=== PATIENT | male | born 1960 | race Caucasian/White ===

== ENCOUNTER 2021-02-03 05:00 | Emergency (ER) | payer OTHER ==
[2021-02-03 05:54] LABS: Hematocrit 45.8 % (39.6-49.0)
[2021-02-03 06:07] LABS: ALT/SGPT 76 U/L (12-78); AST/SGOT 35 U/L (15-37); Albumin 3.8 g/dL (3.4-5.0); Alkaline Phosphatase 94 U/L (45-117); BUN Blood Urea Nitrogen 18 mg/dL (7-18); Bicarbonate 29 mmol/L (21-32); Bilirubin Direct 0.2 mg/dL (0-0.2); Bilirubin Total 1.1 mg/dL (0.2-1.0); Glucose Level 341 mg/dL (74-106); Lipase 134 U/L (73-393); Potassium 4.1 mmol/L (3.5-5.1); Protein, Total 7.5 g/dL (6.4-8.2); Sodium Level 135 mmol/L (136-145)
[2021-02-03] MEDS ORDERED: MORPHINE 2 MG/ML SYR ONE (06:08)
[2021-02-03] MEDS ORDERED: ONDANSETRON 4 MG/2 ML VIAL ONE (06:08)
[2021-02-03 06:09] LABS: Absolute Lymphocytes (CBC) 1.1 K/uL (0.7-4.9); Basophils % 0.6 % (0-1.3); Lymphocytes % 13.5 % (15.3-44.8); MPV 7.4 fL (7.6-11.3); RBC Red Blood Cell Count 5.16 M/uL (4.33-5.43)
[2021-02-03 06:30] LABS: Protime INR 1.03
[2021-02-03 06:34] LABS: NT PRO-BNP 27 pg/mL (<125); Troponin (Emerg Dept Use Only) < 0.02 ng/mL (0.0-0.045)
[2021-02-03 06:36] LABS: Magnesium 2.2 mg/dL (1.8-2.4)
--- NOTE | 2021-02-03 07:17 | RAD REPORT ---
EXAM DESCRIPTION: RAD - Chest Single View - 02/03/2021 6:18 am CLINICAL HISTORY: CHEST PAIN COMPARISON: None TECHNIQUE: AP portable chest image was obtained 02/03/2021 6:18 am . FINDINGS: Lung volumes are low. No peripheral mass consolidation significant failure or volume overl oad findings. Heart and vasculature are normal. No measurable pleural effusion and no pneumothorax. N o acute bony abnormality seen. No acute aortic findings suspected. IMPRESSION: Limited low volume portable chest showing no acute cardiopulmonary finding.
--- NOTE | 2021-02-03 08:27 | RAD REPORT ---
EXAM DESCRIPTION: CT - Angio Aorta For Dissection - 02/03/2021 8:01 am CLINICAL HISTORY: epigastric pain, famhx of AAA COMPARISON: None. TECHNIQUE: Dynamically enhanced 3 mm thick images of the chest, abdomen, and upper pelvis were obtai katey during administration of approximately 150mL Isovue 370 IV contrast. Sagittal and coronal reconst ruction images were generated using MIP and reviewed. Exam utilizes a protocol to evaluate entire cou rse of the aorta. All CT scans are performed using dose optimization technique as appropriate and may include automated exposure control or mA/KV adjustment according to patient size. FINDINGS: Aorta is normal in diameter with no dissection or other acute aortic findings. Reconstruct ion images show no significant findings. Pulmonary arteries are normal as well. No cardiomegaly, pericardial thickening or pericardial effusio n. No mass or infiltrate in the lung parenchyma. No pleural thickening, pleural effusion or pneumothorax . No abnormal mediastinal or hilar mass or lymphadenopathy seen. No chest wall mass or abnormal axillar y lymphadenopathy. Celiac, SMA and renal arteries show no suspicious findings. Diffuse fatty infiltration of the liver s een with no focal liver lesion. There is minimal sparing near the gallbladder fossa. Spleen and pancr eas show no suspicious findings. Gallbladder wall does appear slightly thickened. Stones and sludge c an be occult on CT imaging. No pericholecystic fluid. No biliary tree dilatation. No acute bowel find ing. Moderate stool volume seen in the right-side of the colon. Diverticulosis is mild. No mass or abnormal lymphadenopathy. No free air, free fluid or inflammatory stranding. Urinary maria d dder, prostate gland and seminal vesicles show no suspicious findings. Minimal right-side inguinal he rnia seen. Small fat filled left inguinal hernia seen. IMPRESSION: Negative CT scan of the aorta. Gallbladder wall appears thickened. Stones and sludge can be occult on CT imaging. If patient's sympt oms may be referable to the gallbladder, follow-up gallbladder sonography could be performed. Additional nonacute findings detailed in the body of the report.
[2021-02-03] MEDS ORDERED: LIDOCAINE VISCOUS 2% SOLN 15 ML UDC ONE (09:00)
[2021-02-03] MEDS ORDERED: MAGNES/ALUMIN/SIMET 30ML UCUP ONE (09:00)
--- NOTE | 2021-02-03 09:10 | RAD REPORT ---
EXAM DESCRIPTION: US - Abdomen Exam Limited - 02/03/2021 8:20 am CLINICAL HISTORY: ABD PAIN COMPARISON: No comparisons FINDINGS: No gallstones, sludge or other abnormalities within the gallbladder lumen. There is no wal l thickening or pericholecystic fluid. No common duct stone or biliary tree dilatation identified. Detail was limited due to body habitus affects. IMPRESSION: No gallbladder or biliary tree abnormality identifiable.
--- NOTE | 2021-02-03 09:24 | EDPHYS ---
Physician Documentation [facility] Name: Erasmo Ding Age: 60 yrs Sex: Male : 1960 Arrival Date: 02/03/2021 Time: 05:17 Bed 13 Private MD: ED Physician Ralph Will HPI: 02/03 07:57 This 60 yrs old Male presents to ER via Ambulatory with complaints of rn Abdominal Pain. 07:57 The patient presents with abdominal pain in the epigastric area, in the periumbilical rn area. Onset: The symptoms/episode began/occurred last night. The symptoms do not radiate. Associated signs and symptoms: Pertinent negatives: blood in stools, chest pain, constipation, diarrhea, dysuria, fever, hematuria, shortness of breath, vomiting. The symptoms are described as achy, crampy. Modifying factors: The symptoms are alleviated by nothing, the symptoms are aggravated by movement, touching the area. Severity of pain: At its worst the pain was moderate in the emergency department the pain is unchanged. The patient has not experienced similar symptoms in the past. The patient has not recently seen a physician. + mid abdominal pain that began last night, no fever, no cough/sob/vomiting/diarrhea, + famhx of AAA, reports BP has been running high lately despite taking BP meds. NO trauma. . Historical: - Allergies: 05:18 No Known Allergies; em - PMHx: 05:18 Hypertensive disorder; em - PSHx: 05:18 None; em - Immunization history:: Adult Immunizations up to date. - Social history:: Smoking status: Patient denies any tobacco usage or history of. - Family history:: not pertinent. - Hospitalizations: : No recent hospitalization is reported. ROS: 07:57 Constitutional: Negative for fever, chills, and weight loss, Eyes: Negative for injury, rn pain, redness, and discharge, Neck: Negative for injury, pain, and swelling, Cardiovascular: Negative for chest pain, palpitations, and edema, Respiratory: Negative for shortness of breath, cough, wheezing, and pleuritic chest pain, Abdomen/GI: Negative for nausea, vomiting, diarrhea, and constipation, Back: Negative for injury and pain, MS/Extremity: Negative for injury and deformity, Skin: Negative for injury, rash, and discoloration, Neuro: Negative for headache, weakness, numbness, tingling, and seizure. Exam: 07:57 Constitutional: This is a well developed, well nourished patient who is awake, alert, rn and in no acute distress. Head/Face: Normocephalic, atraumatic. Eyes: Periorbital areas with no swelling, redness, or edema. Cardiovascular: Tachycardic, regular. No pulse deficits. Respiratory: No increased work of breathing, no retractions or nasal flaring. Abdomen/GI: soft, + epigastric and periumbilical tenderness, no rebound or masses Skin: Warm, dry MS/ Extremity: Pulses equal, no cyanosis. Neuro: Awake and alert, GCS 15 Vital Signs: 05:17 BP 184 / 100; Pulse 69; Resp 16; Temp 97.2(O); Pulse Ox 99% on R/A; Weight 136.08 kg; em Height 6 ft. 4 in. (193.04 cm); Pain 8/10; 06:09 BP 159 / 81; Pulse 72; Resp 30 S; Pulse Ox 95% on R/A; Pain 7/10; bb 07:00 BP 151 / 83; Pulse 110; Resp 28; Pulse Ox 92% ; bp 08:30 BP 153 / 91; Pulse 81; Resp 19; Pulse Ox 93% ; bp 10:22 BP 115 / 73; Pulse 79; Resp 16; Temp 98; Pulse Ox 99% ; bp 05:17 Body Mass Index 36.52 (136.08 kg, 193.04 cm) em MDM: 07:00 Patient medically screened. rn 09:21 Differential diagnosis: AAA, appendicitis, bowel obstruction, coronary artery disease, rn cholecystitis, Cholelithiasis, diverticulitis, gastritis, gastroesophageal reflux disease, Hepatitis, non-specific abd pain, pancreatitis, Peptic Ulcer Disease. Data reviewed: vital signs, nurses notes, lab test result(s), EKG, radiologic studies, CT scan, plain films, ultrasound, and as a result, I will discharge patient. Counseling: I had a detailed discussion with the patient and/or guardian regarding: the historical points, exam findings, and any diagnostic results supporting the discharge/admit diagnosis, lab results, radiology results, the need for outpatient follow up, to return to the emergency department if symptoms worsen or persist or if there are any questions or concerns that arise at home. 09:22 Response to treatment: the patient's symptoms have markedly improved after treatment, rn the patient's symptoms have resolved after treatment, the patient's condition has returned to base line, the patient is now symptom free, and as a result, I will discharge patient. Special discussion: Based on the patient's Hx, exam, and Dx evaluation, there is no indication for emergent surgery or inpatient Tx. It is understood by the patient/guardian that if the Sx's persist or worsen they need to return immediately for re-evaluation. I have referred the patient to see his PCP for further evaluation of high blood pressure. I discussed with the patient/guardian in detail that at this point there is no indication for admission to the hospital. It is understood, however, that if the symptoms persist or worsen the patient needs to return immediately for re-evaluation. Based on the history and exam findings, there is no indication for further emergent testing or inpatient evaluation. I discussed with the patient/guardian the need to see the hydroelectric plant technician for further evaluation of the symptoms. I discussed with the patient/guardian the need to see the primary care provider for further evaluation of the symptoms. ED course: No acute findings on CT aorta, ultrasound, cxr, bloodwork, ecg and trop neg and never complained of chest pain. Recommended weight loss and diet modification for hernias/acid reflux/fatty liver, along with PCP and GI f/u. Has appt this week with pcp for BP management. Pain free, and feels good now.. 02/03 05:25 Order name: Basic Metabolic Panel; Complete Time: 07:02/03 05:25 Order name: CBC with Diff; Complete Time: 07:02/03 05:25 Order name: Hepatic Function; Complete Time: 07:02/03 05:25 Order name: Lipase; Complete Time: 07:02/03 06:07 Order name: PT-INR; Complete Time: :02/03 06:07 Order name: XRAY Chest (1 view); Complete Time: 07:02/03 06:07 Order name: DD; Complete Time: 07:02/03 06:11 Order name: Troponin (Emerg Dept Use Only); Complete Time: 07: EDMS 02/03 06:11 Order name: NT PRO-BNP; Complete Time: 07:22 EDMS 02/03 06:11 Order name: Magnesium; Complete Time: 07:22 EDMS 02/03 07:29 Order name: CT Aorta for Dissection; Complete Time: 09:10 rn 02/03 05:25 Order name: IV Saline Lock; Complete Time: 06:07 02/03 05:25 Order name: Labs collected and sent; Complete Time: 06:07 bb 02/03 06:07 Order name: EKG; Complete Time: 06:07 02/03 06:07 Order name: Cardiac monitoring; Complete Time: 06:07 bb 02/03 06:07 Order name: EKG - Nurse/Tech; Complete Time: 06:07 bb 02/03 06:07 Order name: O2 Per Protocol; Complete Time: 06:07 02/03 06:07 Order name: O2 Sat Monitoring; Complete Time: 06:07 02/03 07:29 Order name: US Abdomen Limited; Complete Time: 09:10 rn Administered Medications: 05:45 Drug: morphine 4 mg {Note: RASS 0.} Route: IVP; Site: right antecubital; bb 08:52 Follow up: Response: Adverse reaction, Physician notified; Pain is decreased bp 05:45 Drug: Zofran (Ondansetron) 4 mg Route: IVP; Site: right antecubital; bb 09:43 Follow up: Response: No adverse reaction bp 08:30 Drug: GI Cocktail without - (Maalox Suspension 30 ml, Lidocaine Liquid 2 % 15 bp ml) Route: PO; 09:42 Follow up: Response: No adverse reaction; Pain is decreased bp 09:40 Drug: ProTONIX (pantoprazole) 40 mg Route: IVP; Site: right forearm; bp 10:21 Follow up: Response: No adverse reaction bp Disposition Summary: 02/03/21 09:24 Discharge Ordered Location: Home rn Problem: new rn Symptoms: have improved rn Condition: Stable rn Diagnosis - Abdominal pain, unspecified rn - Acute gastritis rn Followup: rn - With: Phuc Stanton MD - When: As needed - Reason: Recheck today's complaints, Re-evaluation by your physician Discharge Instructions: - Discharge Summary Sheet rn - Abdominal Pain, Adult rn - Gastritis, Adult rn - Hypertension, Adult rn - Pain Without a Known Cause rn - Fatty Liver Disease rn Forms: - Medication Reconciliation Form rn - Thank You Letter rn - Antibiotic chief learning officer - Prescription Opioid Use rn Prescriptions: - Protonix 40 mg Oral Tablet - take 1 tablet by ORAL route once daily; 30 tablet; Refills: 0, Product rn Selection Permitted Signatures: Dispatcher [employer] EDMS Vito Osorio RN RN em Ballard, Brenda, RN RN bb Nieto, Roman, MD MD rn Peltier, Brian, ADRI RN bp Corrections: (The following items were deleted from the chart) 06: 06:07 MAGNESIUM+C.LAB.BRZ ordered. EDMS EDMS 06:09 06:07 PROBNP+C.LAB.BRZ ordered. EDMS EDMS 06:09 06:07 TROPONIN (EMERG DEPT USE ONLY)+C.LAB.BRZ ordered. EDMS EDMS
--- NOTE | 2021-02-03 09:24 | ER ---
Nurse's Notes [facility] Name: Erasmo Ding Age: 60 yrs Sex: Male : 1960 Arrival Date: 02/03/2021 Time: 05:17 Bed 13 Private MD: Diagnosis: Abdominal pain, unspecified;Acute gastritis Presentation: 02/03 05:17 Chief complaint: Patient states: epigastric pain that started at 0130 this morning, em denies N/V or fever. Coronavirus screen: Client denies travel out of the [place] in the last 14 days. Ebola Screen: Patient negative for fever greater than or equal to 101.5 degrees Fahrenheit, and additional compatible Ebola Virus Disease symptoms Patient denies exposure to infectious person. Patient denies travel to an Ebola-affected area in the 21 days before illness onset. No symptoms or risks identified at this time. Initial Sepsis Screen: Does the patient meet any 2 criteria? No. Patient's initial sepsis screen is negative. Does the patient have a suspected source of infection? No. Patient's initial sepsis screen is negative. Risk Assessment: Do you want to hurt yourself or someone else? Patient reports no desire to harm self or others. Onset of symptoms was February 03, 2021. 05:17 Method Of Arrival: Ambulatory em 05:17 Acuity: REYES 3 em Historical: - Allergies: 05:18 No Known Allergies; em - PMHx: 05:18 Hypertensive disorder; em - PSHx: 05:18 None; em - Immunization history:: Adult Immunizations up to date. - Social history:: Smoking status: Patient denies any tobacco usage or history of. - Family history:: not pertinent. - Hospitalizations: : No recent hospitalization is reported. Screenin:30 Abuse screen: Denies threats or abuse. Nutritional screening: No deficits noted. bb Tuberculosis screening: No symptoms or risk factors identified. Fall Risk None identified. Assessment: 05:30 General: Appears in no apparent distress. uncomfortable, Behavior is cooperative, bb anxious. Pain: Complains of pain in epigastric area Pain currently is 7 out of 10 on a pain scale. Neuro: Level of Consciousness is awake, alert, obeys commands, Oriented to person, place, time, situation. Cardiovascular: Heart tones S1 S2 present Capillary refill < 3 seconds Patient's skin is warm and dry. Respiratory: Airway is patent Respiratory effort is shallow, Respiratory pattern is tachypnea Breath sounds are clear bilaterally. GI: Abdomen is round Bowel sounds present X 4 quads. Abd is soft and non tender X 4 quads. Reports upper abdominal pain. Derm: Skin is pink, warm \T\ dry. Musculoskeletal: Circulation, motion, and sensation intact. 07:00 Reassessment: RECD REPORT FROM MARJORIE RUSH. ALL PROTOCOL ORDERS COMPLETED, LMP RE-EVAL bp PENDING. 08:29 Reassessment: PT RETURNED FROM CT AND U/S. RESULTS PENDING. bp 10:23 Reassessment: PT D/C HOME AMBULATORY, DX WITH ACUTE GASTRITIS. bp Vital Signs: 05:17 BP 184 / 100; Pulse 69; Resp 16; Temp 97.2(O); Pulse Ox 99% on R/A; Weight 136.08 kg; em Height 6 ft. 4 in. (193.04 cm); Pain 8/10; 06:09 BP 159 / 81; Pulse 72; Resp 30 S; Pulse Ox 95% on R/A; Pain 7/10; bb 07:00 BP 151 / 83; Pulse 110; Resp 28; Pulse Ox 92% ; bp 08:30 BP 153 / 91; Pulse 81; Resp 19; Pulse Ox 93% ; bp 10:22 BP 115 / 73; Pulse 79; Resp 16; Temp 98; Pulse Ox 99% ; bp 05:17 Body Mass Index 36.52 (136.08 kg, 193.04 cm) em ED Course: 05:17 Patient arrived in ED. em 05:18 Triage completed. em 05:18 Arm band placed on. em 05:30 Patient has correct armband on for positive identification. Placed in gown. Bed in low bb position. Call light in reach. Side rails up X 1. Adult w/ patient. business performance specialist on. Pulse ox on. NIBP on. 05:30 Initial lab(s) drawn, by me, sent to lab. Inserted saline lock: 18 gauge in right bb antecubital area, using aseptic technique. Blood collected. 06:18 XRAY Chest (1 view) In Process Unspecified. EDMS 07:00 Ralph Will MD is Attending Physician. rn 07:16 Ishmael Painter, ADRI is Primary Nurse. bp 08:01 CT Aorta for Dissection In Process Unspecified. EDMS 08:20 US Abdomen Limited In Process Unspecified. EDMS 09:23 Phuc Stanton MD is Referral Physician. rn 10:23 No provider procedures requiring assistance completed. IV discontinued, intact, bp bleeding controlled, No redness/swelling at site. Pressure dressing applied. Administered Medications: 05:45 Drug: morphine 4 mg {Note: RASS 0.} Route: IVP; Site: right antecubital; bb 08:52 Follow up: Response: Adverse reaction, Physician notified; Pain is decreased bp 05:45 Drug: Zofran (Ondansetron) 4 mg Route: IVP; Site: right antecubital; bb 09:43 Follow up: Response: No adverse reaction bp 08:30 Drug: GI Cocktail without - (Maalox Suspension 30 ml, Lidocaine Liquid 2 % 15 bp ml) Route: PO; 09:42 Follow up: Response: No adverse reaction; Pain is decreased bp 09:40 Drug: ProTONIX (pantoprazole) 40 mg Route: IVP; Site: right forearm; bp 10:21 Follow up: Response: No adverse reaction bp Outcome: 09:24 Discharge ordered by MD. rn 10:23 Discharged to home ambulatory, with family. bp 10:23 Condition: stable 10:23 Discharge instructions given to patient, Instructed on discharge instructions, follow up and referral plans. medication usage, Demonstrated understanding of instructions, follow-up care, medications, Prescriptions given X 1. 10:25 Patient left the ED. bp Signatures: Dispatcher [employer] EDNH Vito Osorio RN RN em Ballard, Brenda, RN RN bb Nieto, Roman, MD MD rn Peltier, Brian, RN RN bp Corrections: (The following items were deleted from the chart) 05:19 05:17 BP 184 / 100; Pulse 69bpm; Resp 16bpm; Pulse Ox 99% RA; Temp 97.2F Oral; 136.08 em kg; Height 6 ft. 4 in.; BMI: 36.5; em
[2021-02-03] MEDS ORDERED: PANTOPRAZOLE 40 MG INJ ONE (10:30)
[2021-02-03 10:37] VITALS: BP 115/73; TEMP 98; O2SAT 99
--- NOTE | 2021-02-04 16:38 | EKG ---
Test Date: 2021-02-03 Test Time: 06:04:06 Core Fitter: KAYLEE MEASUREMENT RESULTS: Intervals: Rate: 77 MO: 152 QRSD: 88 QT: 376 QTc: 425 [place]: P: 51 MO: 152 QRS: -7 T: -6 INTERPRETIVE STATEMENTS: Normal sinus rhythm Normal ECG No previous ECG available for comparison Electronically Signed On 02-04-21 16:33:23 CDT by Michael Johnston
== END 2021-02-03 10:25 | disposition home or self-care (01) ==
LOC: ER 05:00
DX: K29.00 Acute gastritis without bleeding (principal)
CPT/HCPCS: 93005; 85025; 80048; 36415; 83735; 85610; 85379; 80076; 84484; 83690; 83880; 71275; 74175; 71045; 76705; Q9967; C9113; J2270; J2405; 99284

== ENCOUNTER 2021-03-12 16:41 | Inpatient (IN) | payer OTHER ==
--- OUTSIDE RECORDS SUMMARY | 2021-03-12 16:44 | XMS REPORT | Continuity of Care Document ---
:1960 Author Organization [facility] t Address [address] [place] [address] Care Team Providers Name Role Phone Magdalena Coyle Primary Care Physician [phone] Magdalena Ponce Attending Clinician [phone] Braulio Ho MD Attending Clinician Thomas Kirkland MA Attending Clinician Unavailable Payers Payer Name Policy Type Policy Effective Date Expiration Date Sour ce Number CIGNACIGNA OPEN [id number] 2012 [facility] ACCESS/NETWORKxx [facility]:00[facility] [id number] 3-PresentHMO Problems Condition Condition Condition Status Onset Resolution Last Treating Co mments Source Name Details Category Date Date Treatment Clinician Date Pure Pure Disease Active Methodi hypertrigl hypertrigl 03-05 yceridemia yceridemia 00:00: Ho spita 00 l Diabetes Diabetes Disease Active Metho di mellitus mellitus 03-05 without without 00:00: Hospita complicati complicati 00 l on on Essential Essential Disease Active Met hodi hypertensi hypertensi 03-05 on on 00:00: Hospita 00 l BMI BMI Disease Active Methodi 40.0-44.9, 40.0-44.9, 03-05 adult adult 00:00: Hospita 00 l Allergies, Adverse Reactions, Alerts This patient has no known allergies or adverse reactions. Family History Family Member Diagnosis Comments Start Date Stop Date Source Natural mother Heart attack [facility] Natural father Stroke [facility] Social History Social Habit Start Date Stop Date Quantity Comments Source History SDOH [facility] History SDOH [facility] Exposure to Not sure [facility] SARS-CoV-2 (event) Hospit al Alcohol intake 2021-03-05 2021-03-05 Lifetime [facility] 00:00:00 00:00:00 non-drinker Hospital (finding) History SDOH 2021-03-03 2021-03-03 1 [facility] Alcohol Frequency 00:00:00 00:00:00 Hospita l Sex Assigned At [birth year] [facility] 00[facility]00 [facility] Smoking Status Start Date Stop Date Source Never smoker [facility] Medications Ordered Filled Start Stop Current Ordering Indication Dosage Frequency Signature Comments Components Source Medication Medication Date Date Medication? Clinician (SIG) Name Name amLODIPine 2021- Yes 5mg QD Take 1 Meth jay (NORVASC) 5 03-03 07-28 tablet (5 st mg tablet 00:00: 04:59 mg total) Ho spita 00 :00 by mouth l daily. pantoprazol Yes TAKE 1 Meth jay e 6-[address] (PROTONIX) 00:00: ORAL ROUTE H ospita 40 MG EC 00 1 TIME l tablet DAILY fluticasone Yes USE 1 Metho di propionate 6-[address] (FLONASE) 00:00: EACH Hospita 50 00 NOSTRIL l mcg/actuati TWICE A on nasal DAY FOR 14 spray DAYS losartan-hy Yes 1{tbl} QD Take 1 Me thodi drochloroth 5-[address] iazide 00:00: mouth Hospita (HYZAAR) 00 every l 100-25 mg morning. per tablet metoprolol Yes 50mg QD Take 50 mg M ethodi succinate 5-[address] XL 00:00: every Hospita (TOPROL-XL) 00 morning. l 50 mg 24 hr tablet Vital Signs Vital Name Observation Time Observation Value Comments Source Systolic blood 2021-03-03 15:34:00 136 mm[Hg] [facility] pressure Diastolic blood 2021-03-03 15:34:00 89 mm[Hg] [facility] pressure Heart rate 2021-03-03 15:34:00 87 /min [facility] Body height 2021-03-03 15:34:[address] [facility] Body weight 2021-03-03 15:34:[address] [facility] BMI 2021-03-03 15:34:00 40.05 kg/m2 [facility] Oxygen saturation in 2021-03-03 15:34:00 98 /min [facility] Arterial blood by Pulse oximetry Procedures Procedure Date / Time Performed Performing Clinician [facility] e LIPID PANEL 2021-03-03 17:02:[address] [facility] HEMOGLOBIN A1C 2021-03-03 17:02:[address] [facility] Plan of Care Planned Activity Planned Date Details Comments Source Future Scheduled Test DIABETES: RETINAL EYE [facility] EXAM [code = DIABETES: RETINAL EYE EXAM] Future Scheduled Test DIABETIC FOOT EXAM [facility] [code = DIABETIC FOOT EXAM] Future Scheduled Test URINE MICROALBUMIN [facility] [code = URINE MICROALBUMIN] Future Scheduled Test COVID-19 VACCINE (1) [facility] [code = COVID-19 VACCINE (1)] Future Scheduled Test Hepatitis C screening [facility] (procedure) [code = 293799029] Future Scheduled Test COLONOSCOPY SCREENING [facility] [code = COLONOSCOPY SCREENING] Future Scheduled Test SHINGLES VACCINES (#1) [facility] [code = SHINGLES VACCINES (#1)] Future Scheduled Test INFLUENZA VACCINE [code [facility] = INFLUENZA VACCINE] Encounters Start End Encounter Admission Attending Care Care Encounter Source Date/Time Date/Time Type Type Clinicians Facility Department ID 2021-03-06 2021-03-06 Outpatient [facility] 6ee [id number] 00:00:00 00:00:00 , Luisa [id number] Magdalena [id number] 2021-03-05 2021-03-05 Lab [facility], 1.2.840.1 [id number] Methodi 07:24:24 07:29:24 Alejandro Ramsey 13691.1.1 660 s t 3.430.2.7 Hospit a .3.695798 l .8 2021-03-03 2021-03-03 Office [facility], 1.2.840.1 [id number] Methodi 09:53:44 11:25:53 Visit Alejandro Ramsey 55425.1.1 881 s t 3.430.2.7 Hospit a .3.992380 l .8 2021-03-03 2021-03-03 Outpatient [facility] [id number] [address] 00:00:00 00:00:00 ALEJANDRO Apple[address] [facility] 2021-03-03 2021-03-03 Outpatient [facility] [id number] [address] 00:00:00 00:00:00 ALEJANDRO [address] 2021-03-03 2021-03-03 Travel 1.2.840.1 [id number] Methodi 00:00:00 00:00:[address] 3.430.2.7 0.2.7.3.698 Ho spita .3.522386 084.8 l .8 2021-02-18 2021-02-18 Travel 1.2.840.1 1.2.413.612 [id number] [facility]i 00:00:00 00:00:[address] 3.430.2.7 0.2.7.3.698 Ho spita .3.841158 084.8 l .8 2021-02-18 2021-02-18 Telephone Isael, 1.2.840.1 [id number] Methodi 00:00:00 00:00:00 Edrana L [address] 3.430.2.7 Hospit a .3.715401 l .8 2021-02-05 2021-02-05 Outpatient [facility] [id number] 00:00:00 00:00:00 , Luisa [id number] Magdalena [id number] 2021-02-05 2021-02-05 Outpatient [facility] [id number] 00:00:00 00:00:00 , Luisa [id number] Magdalena [id number] 2021-02-02 2021-02-02 Travel 1.2.840.1 1.2.572.024 [id number] Methodi 00:00:00 00:00:[address] 3.430.2.7 0.2.7.3.698 Ho spita .3.862856 084.8 l .8 2021-02-02 2021-02-02 Telephone [facility], 1.2.840.1 [id number] Methodi 00:00:00 00:00:00 Alejandro AJessica 52403.1.1 427 s t 3.430.2.7 Hospit a .3.536956 l .8 2021-01-21 2021-01-21 Outpatient [facility] 24d [id number] 00:00:00 00:00:00 , Luisa [id number] Magdalena [id number] Results This patient has no known results.
[2021-03-12 20:58] LABS: Absolute Lymphocytes (CBC) 1.2 K/uL (0.7-4.9); Basophils % 0.5 % (0-1.3); Hematocrit 47.5 % (39.6-49.0); Lymphocytes % 11.6 % (15.3-44.8); MPV 7.3 fL (7.6-11.3); RBC Red Blood Cell Count 5.28 M/uL (4.33-5.43)
[2021-03-12] MEDS ORDERED: METHYLPREDNISOLONE 125 MG INJ ONE (21:06)
[2021-03-12 21:11] LABS: Protime INR 1.4
[2021-03-12 21:21] LABS: Blood Morphology Comment NOT SEEN (NOT SEEN); Platelet Estimate INCR; White Blood Cell Scan OK (OK)
[2021-03-12 21:51] LABS: ALT/SGPT 62 U/L (12-78); AST/SGOT 44 U/L (15-37); Albumin 3.2 g/dL (3.4-5.0); Alkaline Phosphatase 66 U/L (45-117); BUN Blood Urea Nitrogen 21 mg/dL (7-18); Bicarbonate 27 mmol/L (21-32); Bilirubin Direct 0.3 mg/dL (0-0.2); Bilirubin Total 1.2 mg/dL (0.2-1.0); Ferritin 959.6 ng/mL (26-388); Glucose Level 266 mg/dL (74-106); Magnesium 2.4 mg/dL (1.8-2.4); NT PRO-BNP 93 pg/mL (<125); Potassium 3.3 mmol/L (3.5-5.1); Sodium Level 134 mmol/L (136-145); Troponin (Emerg Dept Use Only) < 0.02 ng/mL (0.0-0.045)
--- NOTE | 2021-03-12 22:44 | P.HP ---
Certification for Inpatient Patient admitted to: Inpatient With expected LOS: >2 Midnights Patient will require the following post-hospital care: None Practitioner: I am a practitioner with admitting privileges, knowledge of patient current condition, hospital course, and medical plan of care. Services: Services provided to patient in accordance with Admission requirements found in Title 42 Section 412.3 of the Code of Federal Regulations Patient History Date of Service: 03/12/21 Primary Care Provider: Luisa Clark Reason for admission: COVID-19 pneumonia History of Present Illness: 60-year-old male with history of hypertension presents emergency department for shortness of breath. Patient reports testing positive for Covid on 03/05/2021. Patient was vaccinated with 1 dose of moderna vaccine on 03/04/2021. Patient noted increasing shortness of breath, hypoxia on room air at home. Patient was evaluated in the emergency department, labs were significant for sodium 134 potassium 3.3 chloride 96 GFR 57 glucose 266 ferritin 959 CRP 177 chest x-ray shows COVID-19 pneumonia pattern, patient requiring nasal cannula at 4 to 6 L to maintain saturations greater than 90% ED provider wishes to admit for further evaluation and management. - Past Medical/Surgical History -: Hypertension -: None Psychosocial/ Personal History: Lives with family, works in the [employer] - Family History Father -: Heart disease - Social History Smoking Status: Never smoker Alcohol use: No CD- Drugs: No Caffeine use: Yes Place of Residence: Home Review of Systems 10-point ROS is otherwise unremarkable General: Fever, Chills, Weakness, Malaise Respiratory: Cough, Dry, Shortness of Breath Physical Examination - Physical Exam General: Alert, In no apparent distress, Oriented x3 HEENT: Atraumatic, PERRLA, Mucous membr. moist/pink, EOMI, Sclerae nonicteric Neck: Supple, 2+ carotid pulse no bruit, No LAD, Without JVD or thyroid abnormality Respiratory: Diminished, Other (Tachypnea, dyspnea) Cardiovascular: Regular rate/rhythm, Normal S1 S2 Gastrointestinal: Normal bowel sounds, No tenderness Musculoskeletal: No tenderness Integumentary: No rashes Neurological: Normal gait, Normal speech, Normal strength at 5/5 x4 extr, Normal tone, Normal affect Lymphatics: No axilla or inguinal lymphadenopathy - Studies Laboratory Data (last 24 hrs) 08/05/21 20:50: PT 16.2 H, INR 1.40 03/12/21 20:50: WBC 10.60, Hgb 16.3, Hct 47.5, Plt Count 481 H 03/12/21 20:50: Sodium 134 L, Potassium 3.3 L, BUN 21 H, Creatinine 1.30, Glucose 266 H, Magnesium 2.4, Total Bilirubin 1.2 H, AST 44 H, ALT 62, Alkaline Phosphatase 66 Assessment and Plan - Plan Assessment: Acute hypoxic respiratory failure secondary to COVID-19 pneumonia Hypertension Plan: Acute hypoxic respiratory failure secondary to COVID-19 pneumonia: Continue with IV steroids, oral supplements, ivermectin, daily room air saturations, supplemental oxygen as needed, respiratory therapy consult, pulmonology consult. Appreciate further input from pulmonology. Hypertension: Continue home medications adjust as necessary. DVT PPX: Lovenox Code status: Full Discharge Plan: Home Plan to discharge in: Greater than 2 days - Advance Directives Does patient have a Living Will: No Does patient have a Durable POA for Healthcare: No - Code Status/Comfort Care Code Status Assessed: Yes (Full code) Critical Care: No Time Spent Managing Pts Care (In Minutes): 55
[2021-03-12] MEDS ORDERED: NA CHLORIDE 0.9% 1,000 ML ONE (23:05)
--- NOTE | 2021-03-12 23:10 | EDPHYS ---
Physician Documentation [facility] Name: Erasmo Ding Age: 60 yrs Sex: Male : 1960 Arrival Date: 03/12/2021 Time: 16:44 Bed 23 Private MD: ED Physician Dakotah Brown HPI: 03/12 20:45 This 60 yrs old Male presents to ER via Ambulatory with complaints of Covid+, cp Breathing Difficulty. 20:45 The patient has shortness of breath at rest. Onset: The symptoms/episode began/occurred cp last week, and became worse today. 20:45 Duration: The symptoms are continuous, and are steadily getting worse. Associated signs cp and symptoms: Pertinent positives: non-productive cough, Pertinent negatives: chest pain, diaphoresis, dizziness, fever, vomiting. Severity of symptoms: in the emergency department the symptoms are unchanged despite home interventions. Patient reports testing positive for COVID-19 on 03-07-2021. Historical: - Allergies: 17:22 No Known Allergies; ca1 - PMHx: 17:22 Hypertensive disorder; ca1 - Immunization history:: Client reports receiving the 1st dose of the Covid vaccine, March 04, 2021. - Social history:: Smoking status: Patient denies any tobacco usage or history of. ROS: 20:50 Constitutional: Negative for body aches, chills, fever, poor PO intake. cp 20:50 Eyes: Negative for injury, pain, redness, and discharge. cp 20:50 ENT: Negative for drainage from ear(s), ear pain, sore throat, difficulty swallowing, difficulty handling secretions. 20:50 Neck: Negative for pain with movement, pain at rest, stiffness. 20:50 Cardiovascular: Negative for chest pain, edema, palpitations. 20:50 Respiratory: Positive for cough, "sounds productive", shortness of breath, at rest. Negative for wheezing. 20:50 Abdomen/GI: Negative for abdominal pain, vomiting, diarrhea, constipation. 20:50 Neuro: Negative for altered mental status, weakness. 20:50 All other systems are negative. Exam: 20:55 Constitutional: The patient appears in no acute distress, alert, awake, cp non-diaphoretic, non-toxic, well developed, well nourished, obese. 20:55 Head/Face: Normocephalic, atraumatic. cp 20:55 Eyes: Periorbital structures: appear normal, Conjunctiva: normal, no exudate, no injection, Sclera: no appreciated abnormality, Lids and lashes: appear normal, bilaterally. 20:55 ENT: External ear(s): are unremarkable, Nose: is normal, Mouth: Lips: moist, Oral mucosa: moist, Posterior pharynx: Airway: no evidence of obstruction, patent. 20:55 Neck: ROM/movement: is normal, is supple, no meningismus, no nuchal rigidity. 20:55 Chest/axilla: Inspection: normal, Palpation: is normal, no crepitus, no tenderness. 20:55 Cardiovascular: Rate: normal, Rhythm: regular, Edema: is not appreciated, JVD: is not appreciated. 20:55 Respiratory: the patient does not display signs of respiratory distress, Respirations: labored breathing, that is mild, intercostal retractions, are absent, shallow respirations, that is mild, Breath sounds: bronchial sounds, that are mild, are heard diffusely, decreased breath sounds, that are mild, diffuse, stridor, is not appreciated, wheezing: is not appreciated. 20:55 Abdomen/GI: Inspection: abdomen appears normal, Palpation: abdomen is soft and non-tender, in all quadrants. 20:55 Back: pain, is absent, ROM is normal. 20:55 Skin: no rash present. 20:55 Neuro: Orientation: to person, place \\T\\ time. Mentation: is normal, Motor: moves all fours, strength is normal, Gait: is steady. 21:15 ECG was reviewed by the Attending Physician. cp Vital Signs: 17:18 BP 166 / 81; Pulse 89; Resp 24; Temp 97.6(TE); Pulse Ox 90% on 4 lpm NC; Weight 149.23 ca1 kg (R); Height 6 ft. 4 in. (193.04 cm) (R); Pain 0/10; 23:16 BP 151 / 85; Pulse 106; Resp 40 S; Temp 99.1(O); Pulse Ox 90% on 15 lpm NC; iw 17:18 Body Mass Index 40.05 (149.23 kg, 193.04 cm) ca1 MDM: 20:32 Patient medically screened. cp 21:00 Differential diagnosis: CHF exacerbation, Chronic Obstructive Pulmonary Disease cp pneumonia, pulmonary edema, Pulmonary Embolism Sepsis Unstable Angina. 23:25 Data reviewed: vital signs, nurses notes, lab test result(s), EKG, radiologic studies, cp CT scan, plain films, and as a result, I will admit patient. 23:25 Counseling: I had a detailed discussion with the patient and/or guardian regarding: the cp historical points, exam findings, and any diagnostic results supporting the discharge/admit diagnosis, lab results, radiology results, the need for further work-up and treatment in the hospital. Physician consultation: Joaquín BAJWA was contacted at 23:00, regarding admission, to the telemetry unit. patient's condition. 03/12 20:40 Order name: Basic Metabolic Panel cp 03/12 20:40 Order name: CBC with Diff; Complete Time: 21:41 cp 03/12 22:38 Interpretation: Normal except: PLT 481; MPV 7.3; DYAN% 82.9; LYM% 11.6; NEUT A 8.8. cp 03/12 20:40 Order name: LFT's; Complete Time: 22:37 cp 03/12 22:37 Interpretation: Normal except: AST 44; BILIT 1.2; BILID 0.3; TP 9.0; ALB 3.2; GLOB 5.8; cp A/G 0.6. 03/12 20:40 Order name: Magnesium; Complete Time: 22:37 cp 03/12 20:40 Order name: NT PRO-BNP; Complete Time: 22:37 cp 03/12 20:40 Order name: PT-INR; Complete Time: 21:41 cp 03/12 20:40 Order name: Troponin (emerg Dept Use Only); Complete Time: 22:37 cp 03/12 20:40 Order name: CRP; Complete Time: 22:37 cp 03/12 22:37 Interpretation: Abnormal: C-REACTIVE PROT 177.00. cp 03/12 20:40 Order name: Ferritin; Complete Time: 22:37 cp 03/12 20:41 Order name: Basic Metabolic Panel; Complete Time: 22:37 EDMS 03/12 21:21 Order name: CBC Smear Scan; Complete Time: 21:41 EDMS 03/13 05:35 Order name: D-Dimer EDMS 03/13 05:38 Order name: CBC with Automated Diff EDMS 03/13 05:56 Order name: Comprehensive Metabolic Panel EDMS 08/ 05:56 Order name: Lipid Profile EDMS 03/13 05:56 Order name: C-Reactive Protein EDMS / 05:56 Order name: T4 Free EDMS / 05:56 Order name: Magnesium EDMS 03/13 05:56 Order name: Thyroid Stimulating Hormone EDMS 03/13 05:56 Order name: Ferritin EDMS / 06:48 Order name: Hemoglobin A1c EDMS / 07:29 Order name: Manual Differential EDMS / 07:41 Order name: Glucose, Ancillary Testing EDMS 08/ 11:54 Order name: Glucose, Ancillary Testing EDMS 08/ 16:43 Order name: Glucose, Ancillary Testing EDMS / 21:04 Order name: Glucose, Ancillary Testing EDMS 03/14 03:17 Order name: Urine Dipstick-Ancillary EDMS / 03:52 Order name: Urinalysis EDMS 03/14 04:21 Order name: Urine Microscopic Only EDMS 03/14 06:10 Order name: CBC with Automated Diff EDMS 03/12 20:40 Order name: XRAY Chest (1 view) cp / 22:39 Order name: CT Chest For PE Angio cp 03/13 12:13 Order name: CT EDMS / 06:16 Order name: D-Dimer EDMS / 06:33 Order name: Comprehensive Metabolic Panel EDMS 03/14 06:33 Order name: C-Reactive Protein EDMS 08/ 06:33 Order name: Magnesium EDMS 03/14 06:33 Order name: Ferritin EDMS 03/14 08:13 Order name: Glucose, Ancillary Testing EDMS 08/ 11:52 Order name: Glucose, Ancillary Testing EDMS / 13:08 Order name: Glucose, Ancillary Testing EDMS 08/ 16:58 Order name: Glucose, Ancillary Testing EDMS 08/ 21:51 Order name: Glucose, Ancillary Testing EDMS 08/ 07:10 Order name: Comprehensive Metabolic Panel EDMS / 07:10 Order name: C-Reactive Protein EDMS 08 07:10 Order name: Magnesium EDMS 08 07:10 Order name: Ferritin EDMS 03/15 07:17 Order name: D-Dimer EDMS 03/15 07:41 Order name: CBC with Automated Diff EDMS 03/15 07:44 Order name: Glucose, Ancillary Testing EDMS 03/15 08:08 Order name: Urine Culture EDMS 03/15 11:30 Order name: Glucose, Ancillary Testing EDMS 03/15 17:40 Order name: Glucose, Ancillary Testing EDMS 03/15 20:14 Order name: Glucose, Ancillary Testing EDMS 03/16 06:26 Order name: CBC with Automated Diff EDMS 03/16 06:28 Order name: D-Dimer EDMS 03/16 08:01 Order name: Glucose, Ancillary Testing EDMS 03/16 10:46 Order name: Comprehensive Metabolic Panel EDMS 03/16 10:46 Order name: C-Reactive Protein EDMS 03/16 10:46 Order name: Magnesium EDMS 03/16 11:01 Order name: Ferritin EDMS 03/16 11:31 Order name: Glucose, Ancillary Testing EDMS 03/12 20:40 Order name: EKG; Complete Time: 20:41 cp 03/12 20:40 Order name: Cardiac monitoring; Complete Time: 10:25 cp 03/12 20:40 Order name: EKG - Nurse/Tech; Complete Time: 21:18 cp 03/12 20:40 Order name: IV Saline Lock; Complete Time: 23:15 cp 03/12 20:40 Order name: Labs collected and sent; Complete Time: 20:59 cp 03/12 20:40 Order name: O2 Per Protocol; Complete Time: 21:00 cp 03/12 20:40 Order name: O2 Sat Monitoring; Complete Time: 21:00 cp 03/15 07:56 Order name: RAD EDMS EC:15 Rate is 111 beats/min. Rhythm is regular. MA interval is normal. QRS interval is cp normal. QT interval is normal. Interpreted by me. Reviewed by me. Administered Medications: 21:31 Drug: SOLU-Medrol (methylPrednisoLONE) 125 mg Route: IVP; Site: right antecubital; bb 23:14 Drug: NS 0.9% 500 ml Route: IV; Rate: bolus; Site: right antecubital; iw 23:15 Drug: NS 0.9% 500 ml Route: IV; Rate: 125 ml/hr; Site: right antecubital; iw Disposition Summary: 03/12/21 23:10 Hospitalization Ordered Hospitalization Status: Inpatient Admission cp Provider: Will, Jose Luis cp Condition: Stable cp Problem: new cp Symptoms: have improved cp Bed/Room Type: Standard cp Location: Telemetry/MedSurg (Inpatient)(03/16/21 07:18) [email or web address] Room Assignment: 431(03/16/21 07:18) jaLeon Diagnosis - Other viral pneumonia cp - SARS-associated coronavirus as the cause of diseases classified elsewhere cp - Hypoxemia cp Forms: - Medication Reconciliation Form cp - SBAR form cp Addendum: 03/20/2021 19:17 Co-signature as Attending Physician, Dakotah Brown MD. [facility] Signatures: Dispatcher [employer] EDMS Shobha Otto RN RN Kathya Mcknight RN ADRI iw Joaquín Rome, SOLE FILLER-C SOLE FILLER-Cla1 Keith Membreno PA PA cp Nevin Richardson, RN ADRI Bob Parnell RN RN ja Sumi Rudolph RN ADRI [facility] Dakotah Brown MD MD [email or web address] Corrections: (The following items were deleted from the chart) 03/12 23:35 23:10 Telemetry/MedSurg (Inpatient) cp cg 23:35 23:10 cp cg 03/16 07:18 03/12 23:35 [facility] ER HOLD cg ja1 03/16 07:18 03/12 23:35 ERHOLD- cg ja1
--- NOTE | 2021-03-12 23:10 | ER ---
Nurse's Notes [facility] Name: Erasmo Ding Age: 60 yrs Sex: Male : 1960 Arrival Date: 03/12/2021 Time: 16:44 Bed 23 Private MD: Diagnosis: Other viral pneumonia;SARS-associated coronavirus as the cause of diseases classified elsewhere;Hypoxemia Presentation: 03/12 17:18 Chief complaint: Patient states: Covid+ 03/06/2021. SOB got worse today. SPO2 at in ca1 triage was 82%. Placed on O2 via NC at 4LPM, SPO2 at 88%. Coronavirus screen: Client reports previous positive COVID test result. Date of collection: March 06, 2021 Staff notified of need for isolation. Ebola Screen: Patient negative for fever greater than or equal to 101.5 degrees Fahrenheit, and additional compatible Ebola Virus Disease symptoms Patient denies exposure to infectious person. Patient denies travel to an Ebola-affected area in the 21 days before illness onset. No symptoms or risks identified at this time. Initial Sepsis Screen: Does the patient meet any 2 criteria? No. Patient's initial sepsis screen is negative. Does the patient have a suspected source of infection? No. Patient's initial sepsis screen is negative. Risk Assessment: Do you want to hurt yourself or someone else? Patient reports no desire to harm self or others. Onset of symptoms was March 07, 2021. 17:18 Method Of Arrival: Ambulatory ca1 17:18 Acuity: REYES 2 ca1 Historical: - Allergies: 17:22 No Known Allergies; ca1 - PMHx: 17:22 Hypertensive disorder; ca1 - Immunization history:: Client reports receiving the 1st dose of the Covid vaccine, March 04, 2021. - Social history:: Smoking status: Patient denies any tobacco usage or history of. Assessment: 23:15 Reassessment: pt remains tachypneic, drops to 88% on 5 L NC when talking, now placed on iw 15L high flow O2, up to 91%. Vital Signs: 17:18 BP 166 / 81; Pulse 89; Resp 24; Temp 97.6(TE); Pulse Ox 90% on 4 lpm NC; Weight 149.23 ca1 kg (R); Height 6 ft. 4 in. (193.04 cm) (R); Pain 0/10; 23:16 BP 151 / 85; Pulse 106; Resp 40 S; Temp 99.1(O); Pulse Ox 90% on 15 lpm NC; iw 17:18 Body Mass Index 40.05 (149.23 kg, 193.04 cm) ca1 ED Course: 16:44 Patient arrived in ED. rg4 17:22 Triage completed. ca1 17:22 Arm band placed on right wrist. ca1 20:32 Keith Membreno PA is PHCP. cp 20:32 Dakotah Brown MD is Attending Physician. cp 20:58 Initial lab(s) drawn, by me, sent to lab. Missed attempt(s): 20 gauge in right bb antecubital area. Bleeding controlled, band aid applied, catheter tip intact. 21:30 Inserted saline lock: 18 gauge in right antecubital area, using aseptic technique. bb 21:35 XRAY Chest (1 view) In Process Unspecified. EDMS 22:30 Kathya Hi, ADRI is Primary Nurse. iw 23:09 Jose Luis Will MD is Hospitalizing Provider. cp 03/13 10:25 CT Chest For PE Angio Sent. sv 10:25 Basic Metabolic Panel Sent. sv 16:40 Primary Nurse role handed off by Kathya Hi RN hb 16:40 Shruti Lu, ADRI is Primary Nurse. hb 18:53 Missed attempt(s): 22 gauge in left antecubital area. Bleeding controlled, band aid mb4 applied, catheter tip intact. 19:25 Inserted saline lock: 24 gauge in left hand, using aseptic technique. ds4 Administered Medications: 03/12 21:31 Drug: SOLU-Medrol (methylPrednisoLONE) 125 mg Route: IVP; Site: right antecubital; bb 23:14 Drug: NS 0.9% 500 ml Route: IV; Rate: bolus; Site: right antecubital; iw 23:15 Drug: NS 0.9% 500 ml Route: IV; Rate: 125 ml/hr; Site: right antecubital; iw Outcome: 23:10 Decision to Hospitalize by Provider. cp 03/16 11:53 Patient left the ED. bd Signatures: Dispatcher [employer] EDMS Corinne Plunkett Stephanie, RN RN sv Shobha Otto RN RN bb Kathya Hi RN RN Darell Du ds4 Keith Membreno PA PA cp Baxter, Heather, RN RN Digna Butt rg4 Charline Lu mb4 Sumi Rudolph, RN RN ca1
--- NOTE | 2021-03-12 23:36 | RAD REPORT ---
EXAM DESCRIPTION: RAD - Chest Single View - 03/12/2021 9:36 pm CLINICAL HISTORY: Cough;SOB COMPARISON: February 03 TECHNIQUE: AP portable chest image was obtained 03/12/2021 9:36 pm . FINDINGS: Lung volumes are low. Airspace opacification present in the inferior aspect of the right u pper lobe abutting the minor fissure. Airspace disease present in the lower left lung field is well. Bilateral pneumonia is most likely. In the current clinical setting, COVID-19 pneumonia would be a pr imary consideration. Heart and vasculature are normal. No measurable pleural effusion and no pneumothorax. No acute bony abnormality seen. No acute aortic findings suspected. IMPRESSION: Bilateral pneumonia findings are present. In the current clinical environment, COVID-19 pneumonia would be a primary consideration.
[2021-03-13] MEDS ORDERED: MELATONIN 5 MG TABLET PO PRN (00:12)
[2021-03-13] MEDS ORDERED: BENZONATATE 100 MG CAP PO PRN (00:12)
[2021-03-13] MEDS ORDERED: ONDANSETRON 4 MG/2 ML VIAL IV PRN (00:12)
[2021-03-13] MEDS ORDERED: D50W 25 GM/50 ML SYRINGE IV PRN (00:12)
[2021-03-13] MEDS ORDERED: ACETAMINOPHEN 500 MG TAB PO PRN (00:12)
[2021-03-13] MEDS ORDERED: GLUCAGON 1 MG/VIAL IM PRN (00:12)
[2021-03-13 02:53] VITALS: BMI 39.9
[2021-03-13] MEDS ORDERED: NA CHLORIDE 0.9% 1,000 ML ONE ×2 (05:00→13:41)
[2021-03-13 05:14] LABS: Absolute Lymphocytes (CBC) 0.5 K/uL (0.7-4.9); Basophils % 0.6 % (0-1.3); Lymphocytes % 10.9 % (15.3-44.8); MPV 7.5 fL (7.6-11.3); RBC Red Blood Cell Count 4.72 M/uL (4.33-5.43)
[2021-03-13 05:53] LABS: Albumin 2.7 g/dL (3.4-5.0); Bilirubin Total 0.9 mg/dL (0.2-1.0); Ferritin 962.6 ng/mL (26-388); Magnesium 2.7 mg/dL (1.8-2.4); Potassium 4.1 mmol/L (3.5-5.1); Protein, Total 7.9 g/dL (6.4-8.2); Thyroid Stimulating Hormone 0.141 uIU/mL (0.360-3.740)
--- NOTE | 2021-03-13 06:55 | P.PN ---
Subjective Date of Service: 03/13/21 Primary Care Provider: Luisa Clark Chief Complaint: COVID-19 pneumonia Subjective: Improving (breathing more comfortably, requiring 15L NC, denies n/v/abd pain, no diarrhea, +dyspnea and hypoxic with exertion) Review of Systems 10-point ROS is otherwise unremarkable Physical Examination - Vital Signs Temperature: 98.4 F Blood Pressure: 154/75 Pulse: 80 Respirations: 28 Pulse Ox (%): 91 - Studies Laboratory Data (last 24 hrs) 03/12/21 20:50: PT 16.2 H, INR 1.40 03/12/21 20:50: WBC 10.60, Hgb 16.3, Hct 47.5, Plt Count 481 H 03/12/21 20:50: Sodium 134 L, Potassium 3.3 L, BUN 21 H, Creatinine 1.30, Glucose 266 H, Magnesium 2.4, Total Bilirubin 1.2 H, AST 44 H, ALT 62, Alkaline Phosphatase 66 Assessment & Plan Physician Review Additional Text: Physical Exam General: Alert, NAD HEENT: Normal conjunctiva, sclera anicteric Respiratory: Tachypneic, mildly labored on 15 L nasal cannula Cardiovascular: Regular rate/rhythm with occasional tachycardia 90-100, Normal S1 S2 Gastrointestinal: Soft, nontender, nondistended Integumentary: No rashes Neurological: Normal speech, normal affect, moving all extremities bilaterally Problem List Acute hypoxemic respiratory failure secondary to COVID-19 pneumonia Hypertension Diabetes mellitus type 2, new diagnosis Continue treatment per Covid protocol, IV steroids, oral supplements, ivermectin Wean supplemental oxygen as tolerated Pulmonary consulted Baricitinib ordered Restart home medications, patient is hypertensive Hemoglobin A1c: 8.9 will need long-acting as well VTE: xarelto Code: full Dispo: anticipate hospitalization > 2 days Time Spent Managing Pts Care (In Minutes): 40
[2021-03-13 07:29] LABS: Blood Morphology Comment NOT SEEN (NOT SEEN); Platelet Estimate ADEQ
[2021-03-13] MEDS: INSULIN GLARGINE 100 UNITS/ML SQ SCH (08:00)
[2021-03-13] MEDS ORDERED: ENOXAPARIN 40 MG/0.4 ML SQ SCH (09:00)
[2021-03-13] MEDS: ASCORBIC ACID 500 MG TABLET PO SCH ×4 (09:00→21:00)
[2021-03-13] MEDS: THIAMINE HCL 100 MG TABLET PO SCH (09:00)
[2021-03-13] MEDS: VITAMIN D 1000 UNIT TAB PO SCH (09:00)
[2021-03-13] MEDS: ZINC SULFATE 220 MG CAP PO SCH (09:00)
[2021-03-13] MEDS: ASPIRIN EC 81 MG TAB PO SCH (09:00)
[2021-03-13] MEDS: IVERMECTIN 3 MG TABLET PO SCH (09:00)
[2021-03-13] MEDS: METHYLPREDNISOLONE 40 MG INJ IV SCH ×3 (09:00→21:00)
[2021-03-13] MEDS ORDERED: METHYLPREDNISOLONE 125 MG INJ ONE ×2 (09:13→12:11)
[2021-03-13] MEDS ORDERED: ZINC SULFATE 220 MG CAP ONE (09:13)
[2021-03-13] MEDS ORDERED: INSULIN GLARGINE 100 UNITS/ML SQ ONE (09:13)
[2021-03-13] MEDS ORDERED: ASCORBIC ACID 500 MG TABLET ONE ×5 (09:14→21:15)
[2021-03-13] MEDS ORDERED: ASPIRIN EC 81 MG TAB PO ONE (09:14)
[2021-03-13] MEDS ORDERED: VITAMIN D 1000 UNIT TAB ONE (09:14)
[2021-03-13] MEDS ORDERED: INSULIN -REGULAR HUMAN 50 UNIT/0.5 ML ML ONE ×4 (09:14→21:16)
[2021-03-13] MEDS ORDERED: ENOXAPARIN 40 MG/0.4 ML SQ ONE (09:15)
[2021-03-13] MEDS ORDERED: THIAMINE HCL 100 MG TABLET ONE (09:28)
[2021-03-13] MEDS: INSULIN -REGULAR HUMAN 50 UNIT/0.5 ML ML SQ SCH ×4 (09:51→21:00)
--- NOTE | 2021-03-13 10:49 | EKG ---
Test Date: 2021-03-12 Test Time: 21:08:48 Animal Control Supervisor: MARLIN MEASUREMENT RESULTS: Intervals: Rate: 111 [place]: 132 QRSD: 78 QT: 370 QTc: 503 [place]: P: 27 AZ: 132 QRS: -2 T: 71 INTERPRETIVE STATEMENTS: Sinus tachycardia Nonspecific ST and T wave abnormality Abnormal ECG Compared to ECG 02/03/2021 06:04:06 ST (T wave) deviation now present Sinus rhythm no longer present Electronically Signed On 03-13-21 10:48:11 CDT by Michael Johnston
--- NOTE | 2021-03-13 12:04 | P.CNS ---
Date of Consult: 03/13/21 (PT agreed to TV) Reason for Consult: COVID penumonia Primary Care Provider: Luisa Clark Chief Complaint: COVID-19 pneumonia History of Present Illness: AGe 60 AW resp fialure from COVID penumonia/ Severe bilaterla penumonia Allergies No Known Allergies Allergy (Unverified 03/13/21 00:11) Home Medications: Amlodipine [Norvasc] 5 mg PO DAILY 03/13/21 Fluticasone [Flonase 50mcg Nasal [place]] 2 sprays NS DAILY 03/13/21 Losartan/Hydrochlorothiazide [Losartan-Hctz 100-25 mg Tab] 1 each PO DAILY 03/13/21 Metoprolol Tartrate [Lopressor] 50 mg PO DAILY 03/13/21 Pantoprazole [Protonix Tab] 40 mg PO DAILY 03/13/21 - Past Medical/Surgical History -: Hypertension -: None Psychosocial/ Personal History: Lives with family, works in the [employer] - Family History Father Medical History: Heart disease - Social History Alcohol use: No CD- Drugs: No Caffeine use: Yes Place of Residence: Home Review of Systems General: Weakness Respiratory: Cough, Shortness of Breath Physical Examination Temp Pulse Resp BP Pulse Ox 98.4 F 92 H 38 H 154/86 H 89 L 03/13/21 06:55 03/13/21 09:30 03/13/21 09:30 03/13/21 09:30 03/13/21 09:30 General: Alert, In no apparent distress, Cooperative, Mild distress Laboratory Data (last 24 hrs) 03/12/21 20:50: PT 16.2 H, INR 1.40 03/12/21 20:50: WBC 10.60, Hgb 16.3, Hct 47.5, Plt Count 481 H 03/12/21 20:50: Sodium 134 L, Potassium 3.3 L, BUN 21 H, Creatinine 1.30, Glucose 266 H, Magnesium 2.4, Total Bilirubin 1.2 H, AST 44 H, ALT 62, Alkaline Phosphatase 66 - Problems (1) Pneumonia due to COVID-19 virus Current Visit: Yes Status: Acute Plan: AGe 60 AW resp failure fromCOVID, Agree with barcitinib/ Severe COVID penumonia/ Full anticoagualtion/ LAbs and CT rev/ DW / Suman/ BP elevated resume home meds
--- NOTE | 2021-03-13 12:12 | RAD REPORT ---
EXAM DESCRIPTION: CT - Chest For Pe Angio - 03/13/2021 6:34 am CLINICAL HISTORY: 60 years, Male, SOB COMPARISON: None. TECHNIQUE: Multiple transaxial tomograms of the chest were obtained from the lung apices through the lung bases utilizing 2 mm slice thickness at 2 mm interval reconstruction after the administration o f large bolus of IV contrast for complete opacification of the pulmonary arteries. Subsequent maximum intensity projection images were generated in the coronal and sagittal plane for r eview. This exam was performed according to our departmental dose-optimization protocol, which includes auto mated exposure control, adjustment of the mA and/or kV according to patient size and/or use of iterat oscar reconstruction technique. FINDINGS: Several of the images are compared mild by motion artifact limiting diagnostic value. The lungs parenchyma demonstrate the presence of significant bilateral upper and lower lobe periphera l and central groundglass opacities with interlobular septal thickening-crazy paving. No significant masses are demonstrated. The trachea mainstem bronchus demonstrate to be normal. There is no significant pericardial or pleura l effusions. The thoracic aorta demonstrate to be unremarkable. There is no significant aneurysm/or major thoracic aortic dissection allowing for motion artifact. The heart is normal in size. No evidence for right v entricular strain. There are minimal coronary artery calcifications. There is no significant mediastinal and/or hilar lymphadenopathy. The axillary regions demonstrate to be clear. Pulmonary arteries demonstrate to be normal, no intraluminal defect are seen that would suggest pulmo nary embolus. The bone windows demonstrate no significant skeletal lesions. There is minimal anteri or spondylosis lower thoracic spine. The visualized portions of the upper abdomen demonstrate slight decreased attenuation of the liver pe rhaps suggesting fatty filtration. IMPRESSION: No evidence for pulmonary embolus and/or thoracic aortic dissection allowing for motion artifact. Commonly reported imaging features of COVID-19 pneumonia are present. Other processes such as influen za pneumonia and organizing pneumonia, as can be seen with drug toxicity and connective tissue diseas e, can cause a similar imaging pattern. (Reference: https://pubs.rsna.org/doi/full/10.1148/ryct.27541 32886). Fatty filtration of the liver. Electronically signed by: Mick Marsh MD 03/12/2021 11:28 PM CDT Due to temporary technical issues with the PACS/Fluency reporting system, reports are being signed by the in house radiologist without review as a courtesy to ensure prompt reporting. The interpreting r adiologist is fully responsible for the content of the report.
[2021-03-13] MEDS: AMLODIPINE 5 MG TAB PO SCH (12:35)
[2021-03-13] MEDS: METOPROLOL TAR 50 MG TAB PO SCH (12:35)
[2021-03-13] MEDS: RIVAROXABAN 20 MG TABLET PO SCH (12:36)
[2021-03-13] MEDS: LOSARTAN/HCTZ 50-12.5 PO SCH (12:36)
[2021-03-13] MEDS: BARICITINIB 2 MG TABLET PO SCH (12:36)
[2021-03-13] MEDS ORDERED: AMLODIPINE 5 MG TAB ONE (12:42)
[2021-03-13] MEDS ORDERED: METOPROLOL TAR 50 MG TAB ONE (12:42)
[2021-03-13] MEDS ORDERED: METHYLPREDNISOLONE 40 MG INJ ONE (21:16)
[2021-03-14 03:17] LABS: Urine Blood Negative (Negative); Urine Glucose 2+ (Negative); Urine Protein 1+ (Negative); Urine Specific Gravity 1.025 (1.005-1.030)
[2021-03-14 03:51] LABS: Urine Appearance CLEAR (Clear); Urine Bilirubin NEGATIVE (Negative); Urine Blood NEGATIVE (Negative); Urine Color YELLOW (Yellow); Urine Glucose 2+ (Negative); Urine Protein TRACE (Negative); Urine Specific Gravity >=1.030 (1.005-1.030); Urine Urobilinogen 0.2 mg/dL (0.2-1.0)
[2021-03-14 03:52] LABS: Urine Microscopic Reflex ORDER UMIC
[2021-03-14 04:21] LABS: Urine Amorphous Sediment 1+ /HPF (NONE SEEN); Urine Bacteria 20-50 /HPF (NONE SEEN); Urine Mucus 2+ /HPF (NONE SEEN); Urine RBC <5 /HPF (NONE SEEN)
[2021-03-14 06:07] LABS: Absolute Lymphocytes (CBC) 0.7 K/uL (0.7-4.9); Basophils % 0.5 % (0-1.3); Hematocrit 40.7 % (39.6-49.0); Lymphocytes % 9.8 % (15.3-44.8); MPV 7.5 fL (7.6-11.3)
[2021-03-14 06:33] LABS: Albumin 2.5 g/dL (3.4-5.0); Bilirubin Total 0.6 mg/dL (0.2-1.0); C-Reactive Protein 85.9 mg/L (<3.00); Ferritin 1136.4 ng/mL (26-388); Magnesium 2.6 mg/dL (1.8-2.4); Potassium 3.8 mmol/L (3.5-5.1); Protein, Total 7.3 g/dL (6.4-8.2)
[2021-03-14] MEDS: INSULIN -REGULAR HUMAN 50 UNIT/0.5 ML ML SQ SCH ×4 (07:30→21:00)
[2021-03-14] MEDS: INSULIN GLARGINE 100 UNITS/ML SQ SCH (08:00)
[2021-03-14] MEDS ORDERED: METHYLPREDNISOLONE 125 MG INJ ONE ×3 (08:41→20:31)
[2021-03-14] MEDS ORDERED: AMLODIPINE 5 MG TAB ONE (08:42)
[2021-03-14] MEDS ORDERED: ZINC SULFATE 220 MG CAP ONE (08:42)
[2021-03-14] MEDS ORDERED: METOPROLOL TAR 50 MG TAB ONE (08:42)
[2021-03-14] MEDS ORDERED: VITAMIN D 1000 UNIT TAB ONE (08:42)
[2021-03-14] MEDS ORDERED: ASPIRIN EC 81 MG TAB PO ONE (08:42)
[2021-03-14] MEDS ORDERED: INSULIN GLARGINE 100 UNITS/ML SQ ONE ×2 (08:42→10:21)
[2021-03-14] MEDS ORDERED: INSULIN -REGULAR HUMAN 50 UNIT/0.5 ML ML ONE ×4 (08:43→23:38)
[2021-03-14] MEDS: METOPROLOL TAR 50 MG TAB PO SCH (09:00)
[2021-03-14] MEDS: ASCORBIC ACID 500 MG TABLET PO SCH ×4 (09:00→21:00)
[2021-03-14] MEDS ORDERED: INSULIN GLARGINE 100 UNITS/ML SQ SCH (09:00)
[2021-03-14] MEDS: RIVAROXABAN 20 MG TABLET PO SCH (09:00)
[2021-03-14] MEDS: METHYLPREDNISOLONE 40 MG INJ IV SCH ×3 (09:00→20:30)
[2021-03-14] MEDS: VITAMIN D 1000 UNIT TAB PO SCH (09:00)
[2021-03-14] MEDS: THIAMINE HCL 100 MG TABLET PO SCH (09:00)
[2021-03-14] MEDS: AMLODIPINE 5 MG TAB PO SCH (09:00)
[2021-03-14] MEDS: ASPIRIN EC 81 MG TAB PO SCH (09:00)
[2021-03-14] MEDS: ZINC SULFATE 220 MG CAP PO SCH (09:00)
[2021-03-14] MEDS: BARICITINIB 2 MG TABLET PO SCH (09:00)
[2021-03-14] MEDS: LOSARTAN/HCTZ 50-12.5 PO SCH (09:00)
[2021-03-14] MEDS ORDERED: THIAMINE HCL 100 MG TABLET ONE (10:22)
[2021-03-14] MEDS ORDERED: ASCORBIC ACID 500 MG TABLET ONE ×4 (10:22→23:31)
[2021-03-14] MEDS ORDERED: INSULIN -REGULAR HUMAN 50 UNIT/0.5 ML ML IV ONE (12:00)
--- NOTE | 2021-03-14 15:34 | P.PN ---
Subjective Date of Service: 03/14/21 Primary Care Provider: Luisa Clark Chief Complaint: COVID-19 pneumonia Subjective: Improving (states he is doing better. denies SOB) <Renetta Delgado - Last Filed: 03/14/21 15:29> Date of Service: 03/14/21 <Jose Luis Will - Last Filed: 03/14/21 20:09> Review of Systems 10-point ROS is otherwise unremarkable <Jose Luis Will - Last Filed: 03/14/21 20:09> Physical Examination - Vital Signs Temperature: 97.7 F Blood Pressure: 164/89 Pulse: 85 Respirations: 28 Pulse Ox (%): 92 <Renetta Delgado - Last Filed: 03/14/21 15:29> Assessment And Plan Physician Review: Patient Assessed, Agree with Above Assessment and Plan Physician Review Additional Text: Physical Exam General: Alert, NAD, cooperative HEENT: Normal conjunctiva, sclera anicteric Respiratory: Tachypneic, mildly labored respirations, 93% on high flow Cardiovascular: Regular rate/rhythm Gastrointestinal: Soft, nontender, nondistended Integumentary: No rashes MSK: No swelling Neurological: Normal speech, normal affect, moving all extremities bilaterally Problem List Acute hypoxemic respiratory failure secondary to COVID-19 pneumonia Hypertension Diabetes mellitus type 2, new diagnosis Continue treatment per Covid protocol, IV steroids, oral supplements, ivermectin, baricitinib Wean supplemental oxygen as tolerated Pulmonary consulted Patient is hypertensive, restarted home meds. Will continue to monitor Hemoglobin A1c: 8.9, starting lantus 30 units Continue accuchecks, SSI, ADA VTE: xarelto Code: full Dispo: anticipate hospitalization > 2 days Time Spent Managing PTS Care (In Minutes): 35 <Renetta Delgado - Last Filed: 03/14/21 15:29> Physician Review Additional Text: Patient seen and examined this morning with Renetta Delgado and plan of care discussed as noted above. COVID-19 pneumonia, new diagnosis of DM2 continue treatment per protocol, pulm consulted Gen: NAD, Pulm: tachypneic on HFNC, CV: RRR; Abd: soft, NTND; no edema, no rash <Jose Luis Will - Last Filed: 03/14/21 20:09>
[2021-03-14] MEDS ORDERED: MELATONIN 5 MG TABLET PO ONE (23:51)
[2021-03-15 06:51] LABS: Absolute Lymphocytes (CBC) 0.7 K/uL (0.7-4.9); Basophils % 0.3 % (0-1.3); Hematocrit 41.5 % (39.6-49.0); MPV 7.5 fL (7.6-11.3); RBC Red Blood Cell Count 4.57 M/uL (4.33-5.43)
[2021-03-15 07:09] LABS: Potassium 4.1 mmol/L (3.5-5.1)
[2021-03-15 07:10] LABS: Albumin 2.6 g/dL (3.4-5.0); Bilirubin Total 0.6 mg/dL (0.2-1.0); C-Reactive Protein 35.4 mg/L (<3.00); Ferritin 1081.6 ng/mL (26-388); Magnesium 2.7 mg/dL (1.8-2.4); Protein, Total 7.2 g/dL (6.4-8.2)
[2021-03-15] MEDS: INSULIN -REGULAR HUMAN 50 UNIT/0.5 ML ML SQ SCH ×4 (07:30→20:50)
--- NOTE | 2021-03-15 07:55 | RAD REPORT ---
EXAM DESCRIPTION: RAD - Chest Single View - 03/15/2021 7:25 am CLINICAL HISTORY: worsening hypoxia, covid COMPARISON: Chest Single View dated 03/12/2021; Chest Single View dated 02/03/2021; Chest For Pe Angio dated 03/12/2021 FINDINGS: Moderate to severe bilateral airspace disease is similar to the chest CT from 03/12/2021. The chest radiograph from 03/12/2021 limited due to underpenetration. The heart size is within normal limits.No acute osseous abnormality. No significant pleural effusions or pneumothorax. IMPRESSION: Similar moderate to severe bilateral airspace disease compatible with multifocal pneumon ia. Difficult to compare with the prior chest radiograph as it is significantly under penetrated. Com paring across modalities with the CT from 03/12/2021, suspect little interval change.
[2021-03-15] MEDS ORDERED: INSULIN GLARGINE 100 UNITS/ML SQ SCH (08:00)
[2021-03-15] MEDS ORDERED: INSULIN GLARGINE 100 UNITS/ML SQ ONE (08:38)
[2021-03-15] MEDS ORDERED: INSULIN -REGULAR HUMAN 50 UNIT/0.5 ML ML ONE ×4 (08:38→21:01)
[2021-03-15] MEDS ORDERED: ZINC SULFATE 220 MG CAP ONE (08:43)
[2021-03-15] MEDS ORDERED: METOPROLOL TAR 50 MG TAB ONE (08:43)
[2021-03-15] MEDS ORDERED: ASCORBIC ACID 500 MG TABLET ONE ×4 (08:43→21:09)
[2021-03-15] MEDS ORDERED: VITAMIN D 1000 UNIT TAB ONE (08:44)
[2021-03-15] MEDS ORDERED: AMLODIPINE 5 MG TAB ONE (08:44)
[2021-03-15] MEDS ORDERED: METHYLPREDNISOLONE 40 MG INJ ONE ×3 (08:44→21:09)
[2021-03-15] MEDS ORDERED: THIAMINE HCL 100 MG TABLET ONE (08:44)
[2021-03-15] MEDS ORDERED: ASPIRIN EC 81 MG TAB PO ONE (08:44)
[2021-03-15] MEDS: LOSARTAN/HCTZ 50-12.5 PO SCH (09:00)
[2021-03-15] MEDS: RIVAROXABAN 20 MG TABLET PO SCH (09:00)
[2021-03-15] MEDS: METOPROLOL TAR 50 MG TAB PO SCH (09:00)
[2021-03-15] MEDS: METHYLPREDNISOLONE 40 MG INJ IV SCH ×3 (09:00→20:50)
[2021-03-15] MEDS: THIAMINE HCL 100 MG TABLET PO SCH (09:00)
[2021-03-15] MEDS: ASPIRIN EC 81 MG TAB PO SCH (09:00)
[2021-03-15] MEDS: BARICITINIB 2 MG TABLET PO SCH (09:00)
[2021-03-15] MEDS: IVERMECTIN 3 MG TABLET PO SCH (09:00)
[2021-03-15] MEDS: ASCORBIC ACID 500 MG TABLET PO SCH ×4 (09:00→20:50)
[2021-03-15] MEDS: AMLODIPINE 5 MG TAB PO SCH (09:00)
[2021-03-15] MEDS: ZINC SULFATE 220 MG CAP PO SCH (09:00)
[2021-03-15] MEDS: VITAMIN D 1000 UNIT TAB PO SCH (09:00)
--- NOTE | 2021-03-15 16:10 | P.PN ---
Subjective Date of Service: 03/15/21 Primary Care Provider: Luisa Clark Chief Complaint: COVID-19 pneumonia Subjective: Improving (feeling better, can talk more without getting short of breath, good appetite) <Renetta Delgado - Last Filed: 03/15/21 18:08> Date of Service: 03/15/21 <Jose Luis Will - Last Filed: 03/15/21 23:15> Review of Systems 10-point ROS is otherwise unremarkable <Jose Luis Will - Last Filed: 03/15/21 23:15> Physical Examination - Vital Signs Temperature: 97.7 F Blood Pressure: 150/86 Pulse: 86 Respirations: 32 Pulse Ox (%): 96 <Renetta Delgado - Last Filed: 03/15/21 18:08> Assessment And Plan Physician Review Additional Text: Physical Exam General: Alert, NAD, cooperative HEENT: Normal conjunctiva, sclera anicteric Respiratory: Tachypneic, mildly labored respirations, 98% on HFNC Cardiovascular: Regular rate/rhythm Gastrointestinal: Soft, nontender, nondistended Integumentary: No rashes MSK: No swelling Neurological: Normal speech, normal affect, moving all extremities bilaterally Problem List Acute hypoxemic respiratory failure secondary to COVID-19 pneumonia Diabetes mellitus type 2, new diagnosis Hypertension Continue treatment per Covid protocol, IV steroids, oral supplements, baricitinib Ivermectin course completed Wean supplemental oxygen as tolerated Pulmonology consulted Hemoglobin A1c: 8.9, pt is insulin naive. BS continues to be high. Will increase to lantus 40 units and moderate SSI. Will continue to monitor and titrate up slowly Continue accuchecks, ADA Patient is hypertensive, restarted home meds. Will continue to monitor VTE: xarelto Code: full Dispo: anticipate hospitalization > 2 days Time Spent Managing PTS Care (In Minutes): 35 <Renetta Delgado - Last Filed: 03/15/21 18:08> Physician Review Additional Text: Patient seen and examined with Renetta Delgado. Plan of care discussed and agree as noted above. continue covid treatment, increase lantus, increased sliding scale insulin remains on high flow <Jose Luis Will - Last Filed: 03/15/21 23:15>
[2021-03-16 06:26] LABS: Absolute Lymphocytes (CBC) 0.5 K/uL (0.7-4.9); Basophils % 0.3 % (0-1.3); Hematocrit 42.1 % (39.6-49.0); Lymphocytes % 7.3 % (15.3-44.8); MPV 7.2 fL (7.6-11.3); RBC Red Blood Cell Count 4.71 M/uL (4.33-5.43)
--- NOTE | 2021-03-16 06:59 | P.PN ---
Subjective Date of Service: 03/16/21 Primary Care Provider: Luisa Clark Chief Complaint: COVID-19 pneumonia Subjective: Improving (states he is feeling much better, good appetite) <Renetta Delgado - Last Filed: 03/16/21 14:19> Date of Service: 03/16/21 <Jose Luis Will - Last Filed: 03/16/21 21:19> Review of Systems 10-point ROS is otherwise unremarkable <Renetta Delgado - Last Filed: 03/16/21 14:19> Physical Examination - Vital Signs Temperature: 98.0 F Blood Pressure: 141/74 Pulse: 76 Respirations: 36 Pulse Ox (%): 92 <Renetta Delgado - Last Filed: 03/16/21 14:19> Assessment And Plan - Plan Physical Exam General: Alert, NAD, pleasant HEENT: Normal conjunctiva, EOMI Respiratory: Mildly labored respirations Cardiovascular: Regular rate/rhythm Gastrointestinal: Nontender, nondistended Integumentary: No rashes MSK: No swelling Neurological: Speaking normally Problem List Acute hypoxemic respiratory failure secondary to COVID-19 pneumonia Diabetes mellitus type 2, new diagnosis Hypertension Inflammatory markers still elevated but trending down Continue treatment per Covid protocol, IV steroids, oral supplements, baricitinib Ivermectin course completed Wean supplemental oxygen as tolerated, on high flow Pulmonology consulted Hemoglobin A1c: 8.9, pt is insulin naive. BS continues to be high. Will increase to lantus 50 units and moderate SSI. Will continue to monitor and titrate up slowly Continue accuchecks, ADA Patient is hypertensive, restarted home meds. Will continue to monitor VTE: xarelto Code: full Dispo: anticipate hospitalization > 2 days Time Spent Managing PTS Care (In Minutes): 35 <Renetta Delgado - Last Filed: 03/16/21 14:19> - Plan Patient seen and examined with Renetta Delgado. Plan of care discussed and agree as noted above. <Jose Luis Will - Last Filed: 03/16/21 21:19>
[2021-03-16] MEDS: VITAMIN D 1000 UNIT TAB PO SCH (08:03)
[2021-03-16] MEDS: ASPIRIN EC 81 MG TAB PO SCH (08:03)
[2021-03-16] MEDS ORDERED: ASCORBIC ACID 500 MG TABLET ONE ×2 (08:03→10:43)
[2021-03-16] MEDS ORDERED: THIAMINE HCL 100 MG TABLET ONE (08:03)
[2021-03-16] MEDS ORDERED: METOPROLOL TAR 50 MG TAB ONE (08:03)
[2021-03-16] MEDS ORDERED: ZINC SULFATE 220 MG CAP ONE (08:04)
[2021-03-16] MEDS: METOPROLOL TAR 50 MG TAB PO SCH (08:04)
[2021-03-16] MEDS: AMLODIPINE 5 MG TAB PO SCH (08:04)
[2021-03-16] MEDS ORDERED: VITAMIN D 1000 UNIT TAB ONE (08:04)
[2021-03-16] MEDS ORDERED: ASPIRIN EC 81 MG TAB PO ONE (08:04)
[2021-03-16] MEDS ORDERED: AMLODIPINE 5 MG TAB ONE (08:04)
[2021-03-16] MEDS: ZINC SULFATE 220 MG CAP PO SCH (08:05)
[2021-03-16] MEDS: THIAMINE HCL 100 MG TABLET PO SCH (08:05)
[2021-03-16] MEDS: ASCORBIC ACID 500 MG TABLET PO SCH ×4 (08:05→20:31)
[2021-03-16] MEDS: INSULIN -REGULAR HUMAN 50 UNIT/0.5 ML ML SQ SCH ×4 (08:44→20:32)
[2021-03-16] MEDS: INSULIN GLARGINE 100 UNITS/ML SQ SCH (08:45)
[2021-03-16] MEDS: LOSARTAN/HCTZ 50-12.5 PO SCH (08:45)
[2021-03-16] MEDS: RIVAROXABAN 20 MG TABLET PO SCH (08:45)
[2021-03-16] MEDS: BARICITINIB 2 MG TABLET PO SCH (08:45)
[2021-03-16] MEDS: METHYLPREDNISOLONE 40 MG INJ IV SCH ×2 (08:46→13:02)
[2021-03-16] MEDS ORDERED: INSULIN GLARGINE 100 UNITS/ML SQ ONE (08:49)
[2021-03-16] MEDS ORDERED: INSULIN -REGULAR HUMAN 50 UNIT/0.5 ML ML ONE ×2 (08:50→11:52)
[2021-03-16] MEDS ORDERED: METHYLPREDNISOLONE 40 MG INJ ONE ×2 (08:52→10:44)
[2021-03-16] MEDS ORDERED: SPIRONOLACTONE 25 MG TABLET ONE (10:07)
[2021-03-16 10:46] LABS: ALT/SGPT 79 U/L (12-78); AST/SGOT 41 U/L (15-37); Albumin 2.6 g/dL (3.4-5.0); Alkaline Phosphatase 53 U/L (45-117); BUN Blood Urea Nitrogen 29 mg/dL (7-18); Bicarbonate 32 mmol/L (21-32); Bilirubin Total 0.8 mg/dL (0.2-1.0); Glucose Level 285 mg/dL (74-106); Magnesium 2.8 mg/dL (1.8-2.4); Potassium 4.1 mmol/L (3.5-5.1); Protein, Total 6.8 g/dL (6.4-8.2); Sodium Level 141 mmol/L (136-145)
[2021-03-16 11:00] LABS: Ferritin 944.5 ng/mL (26-388)
[2021-03-16] MEDS: METHYLPREDNISOLONE 125 MG INJ IV SCH ×2 (14:00→20:31)
--- NOTE | 2021-03-16 21:14 | P.PN ---
Subjective Date of Service: 03/16/21 Primary Care Provider: Luisa Clark Chief Complaint: COVID-19 pneumonia Subjective: Improving (SOb is improving) Review of Systems General: Weakness Respiratory: Shortness of Breath Physical Examination - Vital Signs Temperature: 97.6 F Blood Pressure: 153/83 Pulse: 77 Respirations: 24 Pulse Ox (%): 93 - Physical Exam General: Alert, Oriented x3, Cooperative Assessment & Plan - Problems (Diagnosis) (1) Pneumonia due to COVID-19 virus Current Visit: Yes Status: Acute Plan: AResp failure CW wean down on O2/ on Max Tx/ Remains on high Conc of Fio2 CW weaning doen of Fio2 Physician Review: Patient Assessed, Agree with Above Assessment and Plan
--- NOTE | 2021-03-17 07:07 | RAD REPORT ---
EXAM DESCRIPTION: RAD - Chest Single View - 03/17/2021 6:51 am CLINICAL HISTORY: penumonia COMPARISON: March 15, March 12 TECHNIQUE: AP portable chest image was obtained 03/17/2021 6:51 am . FINDINGS: Lung volumes remain low. Right upper lobe airspace disease is slightly improved from aren rison. Left lung field also shows some improvement. Trachea remains in the midline. Heart and vasculature are normal. No measurable pleural effusion and no pneumothorax. No acute bony abnormality seen. No acute aortic findings suspected. IMPRESSION: Multifocal bilateral pneumonia pattern showing slight improvement from March 15 imaging.
[2021-03-17] MEDS: INSULIN -REGULAR HUMAN 50 UNIT/0.5 ML ML SQ SCH ×4 (07:56→20:31)
[2021-03-17] MEDS: INSULIN GLARGINE 100 UNITS/ML SQ SCH (07:57)
[2021-03-17] MEDS: ZINC SULFATE 220 MG CAP PO SCH (07:58)
[2021-03-17] MEDS: VITAMIN D 1000 UNIT TAB PO SCH (07:58)
[2021-03-17] MEDS: LOSARTAN/HCTZ 50-12.5 PO SCH (07:58)
[2021-03-17] MEDS: BARICITINIB 2 MG TABLET PO SCH (07:58)
[2021-03-17] MEDS: ASPIRIN EC 81 MG TAB PO SCH (07:58)
[2021-03-17] MEDS: AMLODIPINE 5 MG TAB PO SCH (07:59)
[2021-03-17] MEDS: THIAMINE HCL 100 MG TABLET PO SCH (07:59)
[2021-03-17] MEDS: ASCORBIC ACID 500 MG TABLET PO SCH ×4 (07:59→20:30)
[2021-03-17] MEDS: METHYLPREDNISOLONE 125 MG INJ IV SCH ×3 (07:59→20:30)
[2021-03-17] MEDS: METOPROLOL TAR 50 MG TAB PO SCH (07:59)
[2021-03-17] MEDS: RIVAROXABAN 20 MG TABLET PO SCH (08:14)
[2021-03-17 09:11] LABS: Albumin 2.9 g/dL (3.4-5.0); Bilirubin Total 1.1 mg/dL (0.2-1.0); C-Reactive Protein 6.81 mg/L (<3.00); Ferritin 1039.1 ng/mL (26-388); Potassium 4.4 mmol/L (3.5-5.1); Protein, Total 7.2 g/dL (6.4-8.2)
--- NOTE | 2021-03-17 15:46 | P.PN ---
Subjective Date of Service: 03/17/21 Primary Care Provider: Luisa Clark Chief Complaint: COVID-19 pneumonia Subjective: No new changes, Improving Review of Systems General: Unremarkable Eyes: Unremarkable ENT: Unremarkable Respiratory: SOB with Excertion Cardiovascular: Unremarkable Gastrointestinal: Unremarkable Genitourinary: Unremarkable Musculoskeletal: Unremarkable Integumentary: Unremarkable Neurological: Unremarkable Physical Examination - Vital Signs Temperature: 99 F Blood Pressure: 134/70 Pulse: 72 Respirations: 27 Pulse Ox (%): 94 - Physical Exam General: Alert, In no apparent distress, Oriented x3 HEENT: Atraumatic, PERRLA, EOMI Neck: Supple, JVD not distended Respiratory: Diminished Cardiovascular: Regular rate/rhythm, Normal S1 S2 Capillary refill: <2 Seconds Gastrointestinal: Normal bowel sounds, No tenderness Musculoskeletal: No clubbing, No tenderness Integumentary: No rashes Neurological: Normal speech, Normal tone, Normal affect Lymphatics: No axilla or inguinal lymphadenopathy External genitalia: Deferred Rectal: Deferred Assessment And Plan - Plan Acute hypoxemic respiratory failure secondary to COVID-19 pneumonia Diabetes mellitus type 2, new diagnosis Hypertension Inflammatory markers still elevated but trending down Continue treatment per Covid protocol, IV steroids, oral supplements, baricitinib Ivermectin course completed Wean supplemental oxygen as tolerated, on high flow Pulmonology consulted Hemoglobin A1c: 8.9, pt is insulin naive. BS continues to be high. Continue lantus 50 units and moderate SSI. Will continue to monitor and titrate up slowly Continue accuchecks, ADA Hypertension. Stable Continue home meds. Will continue to monitor VTE: xarelto Code: full Dispo: anticipate hospitalization > 2 days Discharge Plan: Home Plan to discharge in: 48 Hours Physician Review: Patient Assessed, Agree with Above Assessment and Plan Critical Care: No
[2021-03-18 07:20] LABS: ALT/SGPT 105 U/L (12-78); Albumin 2.6 g/dL (3.4-5.0); Alkaline Phosphatase 54 U/L (45-117); BUN Blood Urea Nitrogen 27 mg/dL (7-18); Bicarbonate 27 mmol/L (21-32); Bilirubin Total 1.1 mg/dL (0.2-1.0); C-Reactive Protein 3.18 mg/L (<3.00); Ferritin 978.5 ng/mL (26-388); Glucose Level 254 mg/dL (74-106); Protein, Total 6.5 g/dL (6.4-8.2); Sodium Level 137 mmol/L (136-145)
[2021-03-18 07:21] LABS: AST/SGOT 43 U/L (15-37); Potassium 4.5 mmol/L (3.5-5.1)
[2021-03-18 07:35] LABS: Absolute Lymphocytes (CBC) 0.5 K/uL (0.7-4.9); Basophils % 0.3 % (0-1.3); Hematocrit 42.2 % (39.6-49.0); Lymphocytes % 9.3 % (15.3-44.8); MPV 7.9 fL (7.6-11.3); RBC Red Blood Cell Count 4.73 M/uL (4.33-5.43)
[2021-03-18] MEDS: INSULIN -REGULAR HUMAN 50 UNIT/0.5 ML ML SQ SCH ×4 (07:59→21:19)
[2021-03-18] MEDS: INSULIN GLARGINE 100 UNITS/ML SQ SCH (07:59)
[2021-03-18] MEDS: AMLODIPINE 5 MG TAB PO SCH (07:59)
[2021-03-18] MEDS: LOSARTAN/HCTZ 50-12.5 PO SCH (08:00)
[2021-03-18] MEDS: RIVAROXABAN 20 MG TABLET PO SCH (08:00)
[2021-03-18] MEDS: ZINC SULFATE 220 MG CAP PO SCH (08:00)
[2021-03-18] MEDS: THIAMINE HCL 100 MG TABLET PO SCH (08:00)
[2021-03-18] MEDS: METOPROLOL TAR 50 MG TAB PO SCH (08:00)
[2021-03-18] MEDS: VITAMIN D 1000 UNIT TAB PO SCH (08:00)
[2021-03-18] MEDS: METHYLPREDNISOLONE 125 MG INJ IV SCH ×3 (08:01→21:20)
[2021-03-18] MEDS: ASCORBIC ACID 500 MG TABLET PO SCH ×4 (08:01→21:20)
[2021-03-18] MEDS: BARICITINIB 2 MG TABLET PO SCH (08:01)
[2021-03-18] MEDS: ASPIRIN EC 81 MG TAB PO SCH (08:01)
[2021-03-18 09:52] LABS: Blood Morphology Comment NOT SEEN (NOT SEEN); Platelet Estimate DECR; White Blood Cell Scan OK (OK)
--- NOTE | 2021-03-18 14:55 | P.PN ---
Subjective Date of Service: 03/18/21 Primary Care Provider: Luisa Clark Chief Complaint: COVID-19 pneumonia Subjective: Improving (Doing better O2 improving) Review of Systems Respiratory: Shortness of Breath Physical Examination - Vital Signs Temperature: 96.9 F Blood Pressure: 120/73 Pulse: 90 Respirations: 28 Pulse Ox (%): 89 - Physical Exam General: Alert, In no apparent distress, Oriented x3, Cooperative Assessment & Plan - Problems (Diagnosis) (1) Pneumonia due to COVID-19 virus Current Visit: Yes Status: Acute Plan: Improving DC 1-2 days/on max [place] Physician Review: Patient Assessed, Agree with Above Assessment and Plan
--- NOTE | 2021-03-18 17:48 | P.PN ---
Subjective Date of Service: 03/18/21 Primary Care Provider: Luisa Clark Chief Complaint: COVID-19 pneumonia Patient tolerating 6 L of oxygen by nasal cannula today. Oxygen requirement improved from yesterday. Physical Examination - Vital Signs Temperature: 97.6 F Blood Pressure: 140/83 Pulse: 68 Respirations: 28 Pulse Ox (%): 92 - Physical Exam General: Alert, In no apparent distress, Oriented x3 HEENT: Mucous membr. moist/pink Neck: JVD not distended Respiratory: Other (Nonlabored breathing) Cardiovascular: No edema, Regular rate/rhythm, Normal S1 S2 Gastrointestinal: Soft and benign, Non-distended Musculoskeletal: No swelling Integumentary: No rashes Neurological: Normal strength at 5/5 x4 extr Assessment And Plan - Plan Acute hypoxemic respiratory failure secondary to COVID-19 pneumonia Diabetes mellitus type 2, new diagnosis Hypertension Oxygen requirement is improving. Continue treatment per Covid protocol, IV steroids, oral supplements, baricitinib Ivermectin course completed Wean supplemental oxygen as tolerated. Pulmonology is following. Hemoglobin A1c: 8.9, pt is insulin naive. Patient is hyperglycemic. Continue insulin sliding scale. Titrate Lantus insulin. Continue accuchecks, ADA Hypertension. Stable Continue home meds. Physician Review: Patient Assessed, Agree with Above Assessment and Plan Physician Review Additional Text: Patient seen and examined with Renetta Delgado. Plan of care discussed and agree as noted above. continue covid treatment, increase lantus, increased sliding scale insulin remains on high flow
[2021-03-19] MEDS: METHYLPREDNISOLONE 125 MG INJ IV SCH ×2 (08:40→13:40)
[2021-03-19] MEDS: INSULIN -REGULAR HUMAN 50 UNIT/0.5 ML ML SQ SCH ×3 (08:42→16:54)
[2021-03-19] MEDS: INSULIN GLARGINE 100 UNITS/ML SQ SCH (08:43)
[2021-03-19] MEDS: METOPROLOL TAR 50 MG TAB PO SCH (08:44)
[2021-03-19] MEDS: ZINC SULFATE 220 MG CAP PO SCH (08:44)
[2021-03-19] MEDS: RIVAROXABAN 20 MG TABLET PO SCH (08:44)
[2021-03-19] MEDS: THIAMINE HCL 100 MG TABLET PO SCH (08:44)
[2021-03-19] MEDS: BARICITINIB 2 MG TABLET PO SCH (08:44)
[2021-03-19] MEDS: LOSARTAN/HCTZ 50-12.5 PO SCH (08:44)
[2021-03-19] MEDS: ASCORBIC ACID 500 MG TABLET PO SCH ×3 (08:45→16:56)
[2021-03-19] MEDS: AMLODIPINE 5 MG TAB PO SCH (08:45)
[2021-03-19] MEDS: ASPIRIN EC 81 MG TAB PO SCH (08:45)
[2021-03-19] MEDS: VITAMIN D 1000 UNIT TAB PO SCH (11:13)
[2021-03-19 13:15] VITALS: O2SAT 93
--- NOTE | 2021-03-19 17:52 | P.DS ---
Admission Date: 03/12/21 Discharge Date: 03/19/21 Primary Care Provider: Luisa Clark Disposition: ROUTINE DISCHARGE Discharge Condition: FAIR Reason for Admission: COVID-19 pneumonia - Problems (1) Pneumonia due to COVID-19 virus Status: Acute (2) Acute respiratory failure with hypoxia Status: Acute (3) DM type 2 (diabetes mellitus, type 2) Status: Acute Brief History of Present Illness: 60-year-old male with history of hypertension presented to the emerg ency department with a complaint of shortness of breath. Patient reports testing positive for Covid on 03/05/2021. Patient was vaccinated with 1 dose of moderna vaccine on 03/04/2021. Patient noted increasing shortness of breath, hypoxia on room air at home. Chest x-ray in the ED showed COVID-19 pneumonia pattern, patient requiring nasal cannula at 4 to 6 L to maintain saturations greater than 90%. Patient admitted for further management. Hospital Course: Patient admitted to the medical floor and treated with IV steroid and vitamin supplementation. His respiratory condition initially got worse and patient required up to 15 L oxygen by nasal cannula. He responded to IV steroid and oxygen requirement decreased over the course of the hospital stay. He is curre ntly tolerating 4 L oxygen with ambulation. His room air oxygen saturation is 88%. Patient deemed stable for discharge. Vital Signs/Physical Exam: Temp Pulse Resp BP Pulse Ox 97.6 F 64 24 H 134/86 93 03/19/21 12:00 03/19/21 12:00 03/19/21 12:00 03/19/21 12:00 03/19/21 12:00 General: Alert, In no apparent distress HEENT: Mucous membr. moist/pink Neck: Supple, JVD not distended Respiratory: Other (Nonlabored breathing) Cardiovascular: No edema, Regular rate/rhythm Gastrointestinal: Soft and benign, Non-distended Musculoskeletal: No swelling Integumentary: No rashes Neurological: Normal strength at 5/5 x4 extr Laboratory Data at Discharge: WBC 5.60 K/uL (4.3-10.9) D 03/18/21 06:37 Hgb 14.5 g/dL (13.6-17.9) 03/18/21 06:37 Hct 42.2 % (39.6-49.0) 03/18/21 06:37 Plt Count 164 K/uL (152-406) D 03/18/21 06:37 PT 16.2 SECONDS (9.5-12.5) H 03/12/21 20:50 INR 1.40 03/12/21 20:50 Sodium 137 mmol/L (136-145) 03/18/21 06:37 Potassium 4.5 mmol/L (3.5-5.1) 03/18/21 06:37 BUN 27 mg/dL (7-18) H 03/18/21 06:37 Creatinine 0.80 mg/dL (0.55-1.3) 03/18/21 06:37 Glucose 254 mg/dL (74-106) H 03/18/21 06:37 Magnesium 2.8 mg/dL (1.8-2.4) H 03/16/21 06:07 Total Bilirubin 1.1 mg/dL (0.2-1.0) H 03/18/21 06:37 AST 43 U/L (15-37) H 03/18/21 06:37 ALT 105 U/L (12-78) H 03/18/21 06:37 Alkaline Phosphatase 54 U/L (45-117) 03/18/21 06:37 Triglycerides 103 mg/dL (<150) 03/13/21 04:50 Cholesterol 102 mg/dL (<200) 03/13/21 04:50 HDL Cholesterol 26 mg/dL (40-60) L 03/13/21 04:50 Cholesterol/HDL Ratio 3.92 03/13/21 04:50 Home Medications: Amlodipine [Norvasc*] 5 mg PO DAILY 03/13/21 Fluticasone [Flonase 50MCG Nasal [place]*] 2 sprays NS DAILY 03/13/21 Losartan/Hydrochlorothiazide [Losartan-Hctz 100-25 mg Tab] 1 each PO DAILY 03/13/21 Metoprolol Tartrate [Lopressor*] 50 mg PO DAILY 03/13/21 Pantoprazole [Protonix Tab*] 40 mg PO DAILY 03/13/21 Ascorbic Acid [Vitamin C*] 1,000 mg PO TID #180 tablet 03/19/21 Benzonatate [Tessalon Perle*] 100 mg PO TID PRN #30 cap 03/19/21 Blood-Glucose Meter [One Touch Verio Iq] 1 each MC TID #1 kit 03/19/21 Cholecalciferol (Vitamin D3) [Vitamin D3] 2,000 unit PO DAILY #60 capsule 03/19/21 Insulin Glargine,Hum.rec.anlog [Lantus Solostar] 50 unit SQ DAILY #5 insuln.pen 03/19/21 Pen Needle, Diabetic [Pen Needle] 1 each MC TID #100 dis.needle 03/19/21 Rivaroxaban [Xarelto] 20 mg PO DAILY #30 tablet 03/19/21 Thiamine HCl [Vitamin B-1*] 200 mg PO DAILY #60 tablet 03/19/21 Zinc Sulfate [Zinc Sulfate*] 220 mg PO DAILY #30 cap 03/19/21 predniSONE [Deltasone] 20 mg PO BID #21 tab 03/19/21 New Medications: Insulin Glargine,Hum.rec.anlog [Lantus Solostar] 50 unit SQ DAILY #5 insuln.pen Blood-Glucose Meter [One Touch Verio Iq] 1 each MC TID #1 kit Pen Needle, Diabetic [Pen Needle] 1 each MC TID #100 dis.needle predniSONE [Deltasone] 20 mg PO BID #21 tab Benzonatate [Tessalon Perle*] 100 mg PO TID PRN #30 cap PRN Reason: Cough Thiamine HCl [Vitamin B-1*] 200 mg PO DAILY #60 tablet Ascorbic Acid [Vitamin C*] 1,000 mg PO TID #180 tablet Cholecalciferol (Vitamin D3) [Vitamin D3] 2,000 unit PO DAILY #60 capsule Rivaroxaban [Xarelto] 20 mg PO DAILY #30 tablet Zinc Sulfate [Zinc Sulfate*] 220 mg PO DAILY #30 cap Diet: ADA Activity: Ad magdaleno Followup: Enrique Haddad MD [ACTIVE - CAN ADMIT] - 1 Week LION SEYMOUR [Primary Care Provider] - 1 Week Time spent managing pt's care (in minutes): 42
[2021-03-19 18:30] VITALS: BP 134/72; TEMP 97.7
== END 2021-03-19 18:55 | disposition home or self-care (01) | DRG 177 ==
LOC: ER 16:41 → ERHOLD 22:09 → 4TH 03-16 10:55
PROVIDERS: ADMIT Hospitalist; ATTEND Hospitalist
DX: U07.1 COVID-19 (principal); J12.82 Pneumonia due to coronavirus disease 2019; J96.01 Acute respiratory failure with hypoxia; E11.9 Type 2 diabetes mellitus without complications; I10 Essential (primary) hypertension
CPT/HCPCS: 36415; 71045; 71275; 80048; 80053; 80061; 80076; 81003; 81015; 82728; 82947; 83036; 83735; 83880; 84439; 84443; 84484; 85025; 85379; 85610; 86140; 87086; 87088; 93005; 94003; 94760; 96374; 99284; J1650; J1815; J2920; J2930; J7030; Q9967